=== PATIENT | male | born 1965 | race Caucasian/White ===

== ENCOUNTER → 2017-08-16 | Emergency (ER) | payer OTHER ==
[~2017-08-16] VITALS: Ht 185.4 cm; Wt 122.5 kg
[~2017-08-16] MED LIST: DIAZEPAM 2 MG TAB PO ONE; HYDROCODONE/APAP 10MG-325MG TAB PO ONE; KETOROLAC TROMETHAMINE 60 MG/2 ML VIAL IM ONE
== END | disposition left against medical advice (07) ==
LOC: ER 12:43
DX: Z53.21 Procedure and treatment not carried out due to patient leaving prior to being seen by health care provider (principal)

== ENCOUNTER 2018-07-28 15:21 | Inpatient (IN) | payer OTHER ==
[~2018-07-28] VITALS: Ht 185.4 cm; Wt 127.0 kg
[2018-07-28 16:35] LABS: BASOPHILS % 0.2 % (0.0-1.0); EOSINOPHILS # (AUTO) 0.1 (0.0-0.4); EOSINOPHILS % 1.2 % (0.0-6.0); HEMATOCRIT 49.6 % (38.2-49.6); HEMOGLOBIN 15.8 g/dL (14.0-18.0); LYMPHOCYTES # (AUTO) 2.4 (1.0-3.2); LYMPHOCYTES % 29.9 % (18.0-39.1); MEAN CORPUSCULAR HEMOGLOBIN 30.7 pg (28-32); MEAN CORPUSCULAR HGB CONC 31.9 g/dL (31-35); MEAN CORPUSCULAR VOLUME 96.5 fL (81-99); MONOCYTES # (AUTO) 0.7 (0.2-0.8); MONOCYTES % 8.1 % (4.4-11.3); NEUTROPHILS # (AUTO) 4.9 (2.1-6.9); NEUTROPHILS % 60.2 % (38.7-80.0); PLATELET COUNT 250 x10e3/uL (140-360); RED BLOOD COUNT 5.14 x10e6/uL (4.3-5.7); RED CELL DISTRIBUTION WIDTH 14.7 % (11.7-14.4)
[2018-07-28 16:39] LABS: INR 0.87; PROTHROMBIN TIME 12.6 seconds (11.9-14.5)
[2018-07-28 16:40] LABS: PARTIAL THROMBOPLASTIN TIME 27.9 seconds (23.8-35.5)
[2018-07-28 16:53] LABS: ALANINE AMINOTRANSFERASE 20 IU/L (0-55); ALBUMIN 3.2 g/dL (3.5-5.0); ALKALINE PHOSPHATASE 44 IU/L (40-150); ANION GAP 14.7 mmol/L (8-16); BLOOD UREA NITROGEN 5 mg/dL (7-26); BUN/CREATININE RATIO 6 (6-25); CARBON DIOXIDE 33 mmol/L (22-29); CHLORIDE 96 mmol/L (98-107); CREATINE KINASE 45 IU/L (30-200); CREATININE, SERUM 0.88 mg/dL (0.72-1.25); EST GLOMERULAR FILTRATION RATE > 60 ML/MIN (60-); GLUCOSE 113 mg/dL (74-118); POTASSIUM 3.7 mmol/L (3.5-5.1); SODIUM 140 mmol/L (136-145)
--- NOTE | 2018-07-28 18:13 | Diagnostic Imaging Report ---
EXAMINATION: CHEST 2 VIEWS INDICATION: ^SOB COMPARISON: None FINDINGS: PA and lateral views TUBES and LINES: None. LUNGS: Lungs are not well inflated. There are bibasilar atelectasis. There is no evidence of pneumonia or pulmonary edema. PLEURA: No pleural effusion or pneumothorax. HEART AND MEDIASTINUM: The cardiomediastinal silhouette is unremarkable. BONES AND SOFT TISSUES: Low anterior cervical fusion plate. No acute osseous lesion. Soft tissues are unremarkable. UPPER ABDOMEN: No free air under the diaphragm. IMPRESSION: Hypoinflated lungs with atelectasis. Signed by: Dr. Estiven Sweeney M.D. on 07/28/2018 6:10 PM
[2018-07-28] MEDS ORDERED: ALPRAZOLAM1 MG PO (18:57)
[2018-07-28] MEDS ORDERED: TRAZODONE HCL100 MG PO (18:57)
--- NOTE | 2018-07-28 19:11 | NUR ---
REPORT GIVEN TO ELOY HOOKS DRY MILL OPERATOR NURSE.
[2018-07-28] MEDS ORDERED: ASPIRIN 81 MG CHEW TAB PO ONE (19:30)
[2018-07-28] MEDS ORDERED: MORPHINE SULFATE 2 MG/ML SYR IV PRN (19:30)
--- NOTE | 2018-07-28 19:56 | NUR ---
REPORT CALLED TO ELOY FARIAS FLOOR NURSE. PT GOING TO RM 109 ON TELE. PT AWARE OF ROOM #.
[2018-07-28 20:22] VITALS: BP 111/72
[2018-07-28] MEDS: MORPHINE SULFATE INJ 4 MG/ML INJ IV PRN (20:40)
[2018-07-28] MEDS: SODIUM CHLORIDE 0.9% 1000ML 1,000 ML IV SCH (23:06)
[2018-07-29] VITALS (22 sets, daily range): BP systolic 111–157; BP diastolic 71–103
[2018-07-29] MEDS: MORPHINE SULFATE INJ 4 MG/ML INJ IV PRN ×3 (00:32→08:49)
--- NOTE | 2018-07-29 00:57 | NUR ---
Blood drawn and sent to lab.
[2018-07-29 01:36] LABS: CREATINE KINASE MB 1.3 ng/mL (0-5.0)
[2018-07-29 06:01] LABS: BASOPHILS % 0.3 % (0.0-1.0); EOSINOPHILS # (AUTO) 0.1 (0.0-0.4); EOSINOPHILS % 1.2 % (0.0-6.0); HEMATOCRIT 45.2 % (38.2-49.6); HEMOGLOBIN 14.2 g/dL (14.0-18.0); LYMPHOCYTES # (AUTO) 2.2 (1.0-3.2); LYMPHOCYTES % 28.9 % (18.0-39.1); MEAN CORPUSCULAR HEMOGLOBIN 30.7 pg (28-32); MEAN CORPUSCULAR HGB CONC 31.4 g/dL (31-35); MEAN CORPUSCULAR VOLUME 97.8 fL (81-99); MONOCYTES # (AUTO) 0.7 (0.2-0.8); MONOCYTES % 9.3 % (4.4-11.3); NEUTROPHILS # (AUTO) 4.7 (2.1-6.9); NEUTROPHILS % 59.9 % (38.7-80.0); PLATELET COUNT 261 x10e3/uL (140-360); RED BLOOD COUNT 4.62 x10e6/uL (4.3-5.7); RED CELL DISTRIBUTION WIDTH 14.7 % (11.7-14.4)
--- NOTE | 2018-07-29 06:21 | Diagnostic Imaging Report ---
EXAM: CHEST SINGLE (PORTABLE), AP 1 view INDICATION: Chest pain, shortness of breath COMPARISON: PA and lateral view of the chest July 28, 2018 FINDINGS: LINES/TUBES: None LUNGS: No consolidations or edema. Perihilar and bibasilar atelectasis. PLEURA: No effusions or pneumothorax. Stable elevation of the right hemidiaphragm. HEART AND MEDIASTINUM: Normal size and contour. BONES AND SOFT TISSUES: No acute findings. Lower cervical spine surgical hardware. IMPRESSION: No interval change. Signed by: Dr. Neyda Garrison M.D. on 07/29/2018 6:18 AM
[2018-07-29 06:35] LABS: ANION GAP 10.3 mmol/L (8-16); BLOOD UREA NITROGEN 7 mg/dL (7-26); BUN/CREATININE RATIO 9 (6-25); CALCIUM 8.6 mg/dL (8.4-10.2); CARBON DIOXIDE 35 mmol/L (22-29); CHLORIDE 98 mmol/L (98-107); CREATININE, SERUM 0.81 mg/dL (0.72-1.25); EST GLOMERULAR FILTRATION RATE > 60 ML/MIN (60-); GLUCOSE 97 mg/dL (74-118); MAGNESIUM 1.8 MG/DL (1.3-2.1); POTASSIUM 4.3 mmol/L (3.5-5.1); SODIUM 139 mmol/L (136-145)
[2018-07-29] MEDS: ONDANSETRON HCL INJ 2 MG/ML VIAL IV PRN (08:49)
[2018-07-29] MEDS: SODIUM CHLORIDE 0.9% 1000ML 1,000 ML IV SCH ×2 (08:49→11:59)
[2018-07-29 08:52] LABS: CHOL/HDL RATIO 4.9 (3.9-4.7)
--- NOTE | 2018-07-29 09:00 | NUR ---
Patient's [id number]% on 3L NC, patient takes O2 off and desats to 85/86%, reminded and educated to keep O2 NC in place and verbalized understanding
--- NOTE | 2018-07-29 09:04 | NUR ---
Patient alert and responsive, VSS, medicated for pain, OOB to bathroom and ambulated using walker, chorea jerky involuntary movements noted, assisted patient to bathroom, call light within reach
[2018-07-29 09:11] LABS: CREATINE KINASE MB 1.5 ng/mL (0-5.0); THYROID STIMULATING HORMONE 2.002 uIU/mL (0.350-4.940)
[2018-07-29] MEDS ORDERED: ACETAMINOPHEN 325 MG TAB PO PRN (10:15)
[2018-07-29] MEDS: ASPIRIN 325 MG TAB PO SCH (10:30)
[2018-07-29] MEDS: METOPROLOL SUCCINATE 50 MG TAB XL PO SCH (10:30)
--- NOTE | 2018-07-29 10:41 | NUR ---
Patient with episode of vomiting and upon sitting up and will complete orthostatics, James consulted, other orders for consults in place and being called at this time, patient sitting at bedside, signed consent for stress test and in the chart.
--- NOTE | 2018-07-29 10:43 | Consultation ---
DATE OF CONSULTATION: July 29, 2018 REASON FOR CONSULTATION: Chest pain and shortness of breath. CHIEF COMPLAINT: Chest pain, shortness of breath and back pain. HISTORY OF PRESENT ILLNESS: This is a 53-year-old male with apparent history of COPD, PTSD, anxiety, depression, hypertension, chronic back pain, apparently being followed by Kenneth Hayward. Also, "Mel[place] War Syndrome". The patient presents to [facility] ER with apparent complaints of chest pain, shortness of breath, chest tightness, back pain. Cardiology was consulted to evaluate the patient. The patient was seen in the room. Reports chest pain and chest tightness for the past 6 months. Reports came into the hospital because he was tired of the pain. Pain is worse with palpation and deep breathing. The patient's main complaint is back pain that he says he has been evaluated by Dr. Hayward. Had a spinal injection apparently in March 2018 with no relief. Currently, the patient reports chest pain moderate in nature and worse with palpation and deep breathing. Denies any exertional chest pain. However, the patient is not very active. States that he is just chronically weak. PAST MEDICAL HISTORY: Anxiety, depression, PTSD, "[place] War Syndrome", chronic back pain, COPD, hypertension. PAST SURGICAL HISTORY: Ronda, recent epidural pain injection in March 2018, left knee surgery, apparently colon resection. SOCIAL HISTORY: He is a disabled vet. Positive for alcohol use. He says rare. Also, positive for tobacco use about half a pack a day. Denies any other drug use. FAMILY HISTORY: Mother apparently is , unknown age or cause. Father apparently is at age of 67. Unsure of reason of . HOME MEDICATIONS: Patient reports Xanax and trazodone. REVIEW OF SYSTEMS GENERAL: Denies any weight changes. Positive for fatigue, weakness. Denies any fever, chills, night sweats, skin rashes. SKIN: No rashes. No sores. HEENT: Positive for headache and occasional dizziness. Denies any vision changes, blurred vision, double vision. Positive for earaches. Denies any vertigo. Denies any epistaxis, any runny nose, stuffiness. Denies any sore throat. Positive for neck pain. CARDIAC: Positive for chest pain as described. Positive for dyspnea on exertion. Denies any orthopnea or any PND. No lower extremity edema. RESPIRATORY: Positive for shortness of breath. Denies any wheezing, cough, any hemoptysis. GI: Good appetite. Denies any nausea, vomiting, diarrhea, constipation, hematemesis, any melena. URINARY: Denies any frequency, urgency or any dysuria. VASCULAR: Denies any lower extremity edema, claudication. MUSCULOSKELETAL: Reports muscle weakness throughout. Uses a cane for ambulation. Positive for back pain. NEUROLOGIC: Positive for weakness. Denies any fainting. Denies any seizures. HEMATOLOGY: Denies anemia or easy bruising. ENDOCRINE: Denies any heat or cold intolerance, polyuria, polydipsia, polyphagia. PSYCHIATRIC: Positive for anxiety, depression. PHYSICAL EXAMINATION VITALS: Height 73 inches, weight 280 pounds, BMI 36. Vital signs currently are temperature 97.4, pulse 100, respiratory rate 18, blood pressure 131/71, pulse ox 96 on 2 L nasal cannula. GENERAL: In moderate distress given back pain. SKIN: No rashes or bruises noted. HEENT: Normocephalic. Pupils are equal and reactive. Extraocular movements intact. Trachea midline. No thyromegaly. No JVD. No carotid bruits. HEART: Regular rate and rhythm. No murmurs or clicks. LUNGS: Bilateral breath sounds clear to auscultation. Diminished throughout. ABDOMEN: Soft, nontender and nondistended. No organomegaly noted. MUSCULOSKELETAL: Good muscle strength throughout. VASCULAR: Plus 2 bilateral radial pulses and 1 DP and PT pulses bilaterally. NEUROLOGIC: Cranial nerves II-XII seem intact. LABS: White count is 7.7, hemoglobin 14, hematocrit 45, and platelets 261,000. Sodium 139, potassium 4.3, BUN 7, creatinine 0.8. Troponins are 0.02, 0.02, 0.02. BNP 52. TSH 2. LDL 76, HDL 27. Chest x-ray showing hypoinflated lungs. EKG showing sinus rhythm with nonspecific S/T changes. ASSESSMENT AND PLAN 1. Chest pain. 2. Chronic back pain. 3. Chronic obstructive pulmonary disease. 4. Posttraumatic stress disorder/anxiety/depression. 5. Hypertension. PLAN: The patient presents with multiple complaints of back pain, shortness of breath, chest pain. Enzymes negative. However, the patient's chest pain does not sound cardiac in nature. However, the patient is very concerned of his heart status, and is demanding further evaluation. Will go ahead and do an echo to evaluate heart structure and function. We will do a stress test. It will be a Lexiscan since the patient cannot walk. Will continue to monitor the patient and adjust cardiac therapy as course dictates. Thank you very much for this consult. SEEN AND EVALUATED AGREE WITH NOTE DICTATED BY SUZI JAMES NP Job#: [id number] RI RUBÉN
[2018-07-29] MEDS ORDERED: REGADENOSON 0.4 MG/5 ML SYR IV ONE (11:02)
--- NOTE | 2018-07-29 11:19 | NUR ---
Patient picked up at this time for stress test.
--- NOTE | 2018-07-29 11:56 | NUR ---
Patient returned from stress test and VS- stable but some noted tachycardia and an episode of vomiting, medicated for nausea and will complete orthostatic with patient stable per orders, call light within reach, will, monitor
--- NOTE | 2018-07-29 12:54 | NUR ---
BAGGAGE AGENT WANTED A NURSE TO ASSESS THE PATIENT PRIOR TO TAKING HIM FOR HIS STRESS TEST BECAUSE HE STATED "THE PATIENT FACE LOOKED PURPLE". UPON ASSESSMENT THE PATIENT'S FACE WAS DUSKY, THE OXYGEN WAS OFF HIS NOSE. HE WAS PLACED BACK ON HIS OXYGEN, SATURATION WAS 55% ON 2L. THE OXYGEN WAS INCREASED TO 4L/NC, HEAD OF BED ELEVATED AND THE SATURATION STAYS AT 77%. LUNGS SOUNDS CLEAR, RESPIRATORY THERAPIST WAS CALLED. THE OXYGEN WAS INCREASED AGAIN TO 5L/NC, PATIENT TOLD TO TAKE SEVERAL DEEP BREATHS IN AND OUT AND THE SATURATION INCREASE TO 92%. DR CARRASQUILLO CAME IN TO SEE THE PATIENT, HE STATED TO DECREASE THE OXYGEN TO 2L AND OBTAIN STAT ABG. RESPIRATORY THERAPIST CAME IN, SHE CHECKED HIS SATURATION AND IT READ 87% ON 2L/NC. THE PRIMARY NURSE MARQUISE CAME TO SEE THE PATIENT, STATUS UPDATE WAS GIVEN TO HIM.
--- NOTE | 2018-07-29 13:00 | History and Physical ---
A 53-year-old male with a past medical history positive for PTSD, posttraumatic stress disorder, history bipolar disorder, history of hypertension, history of chronic back pain, came complaining of chest pain originally to the emergency room, but now he complained also that he has been vomiting and feeling weak, falling, getting confused at times. REVIEW OF SYSTEMS CARDIOVASCULAR: No chest pain or palpitation. RESPIRATORY: No shortness of breath. No cough. GASTROINTESTINAL: He complains of vomiting. No abdominal pain. No diarrhea. No constipation. GENITOURINARY: No frequency. No dysuria. ALLERGIES: HE IS ALLERGIC TO PROCHLORPERAZINE. SOCIAL HISTORY: He does not smoke. He denies drinking. PAST MEDICAL HISTORY: PTSD and chronic back pain. PHYSICAL EXAMINATION VITALS: Blood pressure 131/71, temperature is 97.4, heart rate 100 per minute, respiratory rate 18 per minute, oxygen saturation 91%. HEART: Shows regular rhythm. Normal S1 and S2 sounds. LUNGS: Clear bilaterally. ABDOMEN: Soft and nondistended. No visceromegaly. EXTREMITIES: Show no evidence of cyanosis or trauma. On the BMP, sodium 139, potassium 4.3, chloride 98, CO2 35, BUN 7, creatinine 0.81, glucose 97. On the CBC, white blood count 7.76, hemoglobin 14.2, hematocrit 45.2, and platelet count 261,000. PT 12.6, INR 0.87, PTT 27.9. AST 14, ALT 20, total bilirubin 0.7, alkaline phosphatase 44. Three sets of cardiac enzymes completely negative. EKG showed normal sinus rhythm with right axis deviation. No evidence of any S/T segment elevation or depression. Echocardiogram pretty much unremarkable with an ejection fraction of 55%. No evidence of pericardial effusion. No evidence of valvular abnormality. Trace MR and trace tricuspid regurgitation. FINAL IMPRESSION 1. Chest pain which is very atypical. 2. Vomiting. 3. Back pain which is chronic. 4. Anxiety. 5. Posttraumatic stress disorder. 6. Difficulty walking. 7. Confusion times. PLAN OF TREATMENT: We are going to continue normal saline at 125 mL an hour. Zofran 4 mg IV q.4 h. as needed. Alprazolam 1 mg 3 times a day as needed for anxiety. Tylenol 325 mg IV q.6 h. as needed for pain. Morphine 4 mg IV q.4 h. as needed. We are going to consult Dr. Deleon from cardiology. We are going to get a psych consult with Dr. Agustin because of posttraumatic stress disorder. We are going to get physical and occupational therapy. Orthostatic blood pressure. Consult Dr. Jeter for physical therapy also. We are going to consult Dr. Mat Eugene for gastroenterology because of the vomiting. We are going to do a CT of the abdomen also and a chest CT because of positive . Job#: [id number] RI
--- NOTE | 2018-07-29 13:13 | NUR ---
Patient desatted to 80RA as he took off Oxygen, re-applied O2 and at 85% on 3L NC, unable to get it up, orders in place for ABGs and to cancel stress test for today, will place on non-rebreather mask as RT in room with patient.
--- NOTE | 2018-07-29 13:26 | NUR ---
Lavonne obtained and call to Dr. Cartwright to report at this time
--- NOTE | 2018-07-29 13:34 | Diagnostic Imaging Report ---
PROCEDURE:X-RAY ABDOMEN - KUB COMPARISON:None. INDICATIONS:VOMITING FINDINGS: There are no dilated loops of bowel to suggest obstruction. There are clips in the right upper quadrant of the abdomen. There are no masses or abnormal calcifications. There is no evidence of free air. No acute osseous abnormalities are present. CONCLUSION: No acute abdominal abnormality. Felix Boo D.O. Dictated by: Felix Boo D.O. on 07/29/2018 at 13:46 Electronically approved by: Felix Boo D.O. on 07/29/2018 at 13:46
[2018-07-29 13:36] LABS: ABG PCO2 78 mmHg (41-51); ABG PH 7.28 (7.31-7.41)
[2018-07-29 13:37] LABS: ABG HCO3 37 mmol/L (23-28); ABG PO2 46 mmHg (80-105)
--- NOTE | 2018-07-29 13:52 | NUR ---
Call back from Dr. Cartwright and orders in place for pain management and to transfer to IMCU, patient on Bipap at this time, [id number]%, will monitor.
--- NOTE | 2018-07-29 14:41 | NUR ---
Rounds by Dr. Rodriguez and saw patient, orders in place at this time
--- NOTE | 2018-07-29 14:42 | NUR ---
Call back from Dr. Newberry for consult and informed of patient and orders for Bipap as per settings.
--- NOTE | 2018-07-29 14:55 | NUR ---
Report given to Nurse at the IMCU and patient transferred to room 187
--- NOTE | 2018-07-29 14:55 | Consultation ---
DATE OF CONSULTATION: PSYCHIATRIC INITIAL EVALUATION REASON FOR CONSULTATION: Treatment and evaluation of the patient's mood and anxiety. HISTORY OF PRESENT ILLNESS: Patient is a 53-year-old male who was admitted to [facility] because of chest pain. Psychiatric consult is called to evaluate the patient's mood and anxiety during his inpatient stay. Upon evaluation today, the patient is found to be lying on his bed on BiPAP. He is somewhat drowsy, but easily arousable. He stated that he has been feeling depressed and anxious because he is going through financial challenges, and is about to lose his house. He sometimes feels hopeless and helpless. He claims that he is not able to sleep and eat very well. He is having intermittent auditory and sometimes visual hallucinations. He denies any suicidal ideation at this time. He wants his medications to be adjusted for his mood and anxiety. PAST PSYCHIATRIC HISTORY: The patient stated that he has been treated for PTSD and bipolar disorder in the past. He has never attempted suicide. He claims that he drinks alcohol socially. He denies abusing any recreational drugs. FAMILY HISTORY: The patient denies any family history of psychiatric illness. SOCIAL HISTORY: The patient states that he lives with his family. CURRENT LABS: WBC 7.76, hemoglobin 14.2, hematocrit 45.2, and platelets 261,000. Sodium 139, potassium 4.3, chloride 98, carbon dioxide 35, BUN 7, creatinine 0.81. CURRENT MEDICATIONS 1. Xanax 1 mg p.o. t.i.d. p.r.n. for anxiety. 2. Aspirin. 3. P.r.n. morphine. 4. Trazodone 100 mg p.o. t.i.d. MENTAL STATUS EXAMINATION GENERAL: The patient is a middle-aged male who is currently lying on his bed. He is drowsy, but arousable. He is oriented to situation. His mood is anxious and depressed. Blunted affect. He denies any suicidal or homicidal ideation at present. He denies any abnormal perceptions at present. No delusions are elicited. Thought process is goal directed. His insight and judgment are fair. DIAGNOSIS: [place] 1: Bipolar disorder, most recent episode depressed, moderate/history of posttraumatic stress disorder. PLAN OF CARE 1. Reduce trazodone to only at night. 2. Continue p.r.n. Xanax. 3. Add Effexor XR 75 mg p.o. daily. 4. Supportive therapy during his inpatient stay. Job#: [id number] RI
[2018-07-29] MEDS ORDERED: NON-FORMULARY MEDICATION (Trazodone Hcl 100 MG) PO SCH (15:00)
[2018-07-29] MEDS ORDERED: TRAZODONE HCL 50 MG TAB PO SCH ×2 (15:00→21:00)
[2018-07-29] MEDS ORDERED: ALBUTEROL/IPRATROPIUM 3 ML NEB NEB PRN (15:00)
--- NOTE | 2018-07-29 15:09 | History and Physical ---
ADDENDUM TO HISTORY AND PHYSICAL: He had an episode of hypoxemia with hypercapnia. Morphine was discontinued. He was started on BiPAP. Blood gas was done that showed a pH of 7.28, pCO2 78, pO2 46. Sodium bicarbonate 37. Oxygen saturation 93%. He is doing a little better right now. Morphine has been discontinued. He was started on Toradol and Ultracet for pain instead. Dr. Newberry of pulmonology was consulted on the case. Chest x-ray was done also. The chest x-ray showed it was pretty much normal. He does have a history of smoking, so he might have COPD exacerbation. I am going to start him on albuterol and Atrovent q.4 h. as needed for shortness of breath, Solu-Medrol 60 mg IV twice a day plus oxygen also as needed. Dr. Newberry has been consulted from the pulmonary point of view. Also because of that, Dr. Deleon is seeing him from the cardiology point of view. He was going to do a cardiac cath, but he had to postpone it. We did an abdominal x-ray which came back negative. Patient is feeling a lot better right now. Job#: [id number]
--- NOTE | 2018-07-29 15:15 | NUR ---
Patient VSS on Bipap; states he wishes for to be called. Called who states she is en route.
[2018-07-29] MEDS: ALPRAZOLAM 1 MG TAB PO PRN (16:01)
--- NOTE | 2018-07-29 16:56 | NUR ---
Patient resting, eyes closed. to bedside. No acute distress.
[2018-07-29] MEDS: METHYLPREDNISOLONE SOD SUCC 40 MG/ML VIAL IV SCH (21:18)
[2018-07-29] MEDS: TRAMADOL/APAP 37.5MG-325MG TAB PO PRN (23:42)
[2018-07-30] VITALS (9 sets, daily range): BP systolic 104–153; BP diastolic 69–98
--- NOTE | 2018-07-30 01:22 | Consultation ---
DATE OF CONSULTATION: July 29, 2018 PULMONARY MEDICINE CONSULT REASON FOR REFERRAL: Acute respiratory failure. HISTORY: Mr. Barrera is a pleasant 53-year-old gentleman with acute respiratory failure. The patient was admitted to [facility] on July 28, 2018. Patient had chest tightness. He had complained that he felt vomiting/nausea and felt weak. Confusion is also cited. Patient was admitted and evaluated at multiple levels. Patient later had episode of hypoxemia with hypercapnia. He was on morphine that was discontinued. He was started on BiPAP. Subsequent blood gas showed 7.28/78/46/37. Patient's chest x-ray was performed that showed right diaphragmatic elevation but was otherwise clear. BNP was 52. I am consulted. PAST MEDICAL HISTORY: PTSD, chronic back pain. Denies asthma, denies allergies. MEDICATIONS: Medication list reviewed per electronic record, include Solu-Medrol, nicotine patch, metoprolol, alprazolam 1 mg t.i.d. Other medicines, bronchodilators. ALLERGIES: PROCHLORPERAZINE. FAMILY HISTORY: Noncontributory to his condition. SOCIAL HISTORY: Limited history as patient on respiratory assist device. When I asked if he smokes, he said yes and signals 1 pack per day. No drinking, no drugs were reported by him. REVIEW OF SYSTEMS: Cannot get reliably as he is on respiratory support device. OBJECTIVE VITALS: Currently afebrile. Vital signs noted per the electronic record. Currently on BiPAP, comfortable, lying down, communicating by signage. HEENT: Normocephalic, atraumatic. NECK: Supple. Throat midline. LUNGS: Bilateral air entry. Limited effort; therefore, difficult on auscultation. No jolie wheezes, no jolie rhonchi. CARDIOVASCULAR: S1, S2. No murmurs, rubs, or gallops. ABDOMEN: Soft, nontender. EXTREMITIES: No clubbing, no cyanosis. There is 2+ edema to the legs. INTEGUMENT: No rash, no purpura. LABS: 4.3 potassium, 7 BUN, 0.8 creatinine, 8 white count, 45 hematocrit, 261,000 platelets. IMPRESSIONS AND PLAN 1. Acute respiratory failure, on BiPAP salvage. 2. Elevated right hemidiaphragm, contributing to respiratory insufficiency. 3. Chronic smoker, suspect chronic obstructive pulmonary disease. 4. History of anxiety, depression, and posttraumatic stress disorder. 5. Chronic back pain, on pain medicines. 6. Obesity, cannot rule out obesity hyperventilation or sleep apnea components. Continue monitoring in IMCU intermediate care. BiPAP salvage to continue. Will give him 1 trial dose of diuretic. Patient with limitation of opiates. Steroids. Bronchodilators. Will follow along very closely. Initial echocardiogram done, 55% LVEF. Thank you very much, Dr. Cartwright, for allowing me the chance to participate in the care of Mr. Barrera. Do not hesitate to contact me if I can help in any way. Job#: [id number] [id number]
[2018-07-30] MEDS: TRAMADOL HCL 50 MG TAB PO PRN ×2 (04:45→11:02)
[2018-07-30 05:32] LABS: BASOPHILS % 0.1 % (0.0-1.0); HEMATOCRIT 48.5 % (38.2-49.6); LYMPHOCYTES # (AUTO) 0.6 (1.0-3.2); LYMPHOCYTES % 5.8 % (18.0-39.1); MEAN CORPUSCULAR HEMOGLOBIN 30.5 pg (28-32); MEAN CORPUSCULAR HGB CONC 30.9 g/dL (31-35); MEAN CORPUSCULAR VOLUME 98.6 fL (81-99); MONOCYTES # (AUTO) 0.1 (0.2-0.8); NEUTROPHILS # (AUTO) 8.9 (2.1-6.9); NEUTROPHILS % 92.6 % (38.7-80.0); PLATELET COUNT 269 x10e3/uL (140-360); RED BLOOD COUNT 4.92 x10e6/uL (4.3-5.7); RED CELL DISTRIBUTION WIDTH 13.7 % (11.7-14.4)
--- NOTE | 2018-07-30 05:36 | Diagnostic Imaging Report ---
EXAM: CHEST SINGLE (PORTABLE), AP 1 view INDICATION: Shortness of breath COMPARISON: AP view of the chest July 29, 2018 FINDINGS: LINES/TUBES: None LUNGS: Stable bilateral atelectasis and vascular congestion. PLEURA: No effusions or pneumothorax. Stable elevation of the right hemidiaphragm. HEART AND MEDIASTINUM: Normal size and contour. BONES AND SOFT TISSUES: No acute findings. Lower cervical spine surgical hardware. IMPRESSION: No interval change. Signed by: Dr. Neyda Garrison M.D. on 07/30/2018 5:32 AM
[2018-07-30 05:53] LABS: ANION GAP 11.2 mmol/L (8-16); BLOOD UREA NITROGEN 8 mg/dL (7-26); BUN/CREATININE RATIO 10 (6-25); CALCIUM 8.5 mg/dL (8.4-10.2); CARBON DIOXIDE 36 mmol/L (22-29); CHLORIDE 96 mmol/L (98-107); CREATININE, SERUM 0.83 mg/dL (0.72-1.25); EST GLOMERULAR FILTRATION RATE > 60 ML/MIN (60-); GLUCOSE 155 mg/dL (74-118); MAGNESIUM 1.8 MG/DL (1.3-2.1); POTASSIUM 5.2 mmol/L (3.5-5.1); SODIUM 138 mmol/L (136-145)
[2018-07-30] MEDS: VENLAFAXINE HCL 75 MG CAPCR PO SCH (07:39)
[2018-07-30] MEDS: METHYLPREDNISOLONE SOD SUCC 40 MG/ML VIAL IV SCH ×2 (07:39→21:17)
[2018-07-30] MEDS: ASPIRIN 325 MG TAB PO SCH (07:39)
[2018-07-30] MEDS: TRAMADOL/APAP 37.5MG-325MG TAB PO PRN ×2 (07:40→18:33)
[2018-07-30] MEDS: NICOTINE 21 MG/EA PATCH TOP SCH (07:40)
[2018-07-30] MEDS: METOPROLOL SUCCINATE 50 MG TAB XL PO SCH (07:40)
[2018-07-30] MEDS: ALPRAZOLAM 1 MG TAB PO PRN ×2 (07:40→13:01)
[2018-07-30] MEDS ORDERED: FUROSEMIDE INJ 10 MG/ML 2 ML VIAL IV SCH (09:00)
[2018-07-30] MEDS ORDERED: SOD POLYSTYRENE SULFONATE SUSP 15 GM/60 ML BTL PR ONE (15:00)
--- NOTE | 2018-07-30 15:46 | Consultation ---
DATE OF CONSULTATION: July 30, 2018 REHAB CONSULTATION REFERRING PHYSICIAN: Dr. Hema Cartwright. I would like to thank Dr. Cartwright for asking me to see Mr. Barrera in consultation. REASON FOR CONSULTATION 1. Chronic low back pain. 2. Respiratory insufficiency. 3. Posttraumatic stress disorder. 4. COPD. HISTORY: A 53-year-old male with a history of COPD, posttraumatic stress disorder, anxiety disorder, depression, hypertension, chronic back pain, who is seen by Dr. Hayward for neurologic consultation. Has already undergone cervical fusion and was planning to undergo lumbar fusion but over the recent past has been having problems with breathing, having atypical chest pains. Had been seen over at [facility] for breathing issues, and according to the and patient they still could not figure out exactly what was causing him to have problems. Patient right now is having difficulty with gait and mobility secondary to his back and was scheduled to get lumbar fusion. I am being asked to evaluate for rehab needs. PAST MEDICAL HISTORY: Includes anxiety, depression, posttraumatic stress disorder, [place] War syndrome, chronic back pain, COPD, hypertension, osteoarthritis. SURGERIES: Cholecystectomy. He had an epidural steroid injection which did not seem to help any. Left knee replacement. Colon resection. HABITS: He smokes half a pack of cigarettes a day. Nondrinker. No drugs. SOCIAL HISTORY: Lives with and 3 children in a 2-story home. Bedroom is upstairs. Was walking around with a cane. FAMILY HISTORY: Mother is , unsure what she of. Father , again unsure what he of. CONSTITUTIONAL REVIEW OF SYSTEMS GENERAL: Easily fatigues. EYES: Denies. EARS: Denies. NERVES: He has anxiety. He also has what sounds like ulnar nerve issues to right hand. CARDIAC: Some atypical chest pains. LUNGS: COPD. GI: Denies. : Denies. SKIN: Denies. HEMATOLOGIC: Denies. LABS: White cell count of 9.5, hemoglobin 15, hematocrit 48.5, platelets of 269. Sodium 138, potassium 5.2, BUN of 8, creatinine 0.83. He had a KUB which showed no acute abdominal abnormality, and he had a chest x-ray which showed no interval changes. PHYSICAL EXAMINATION GENERAL: The patient is awake and alert. He is sleepy at times, but then he is more awake at times. He comes in and out. A little bit more confused than normal according to his . EYES: Gaze is conjugate. ORAL: Tongue essentially midline. NECK: No JVD. HEART: Regular. LUNGS: Fair air entry. ABDOMEN: Nondistended. He is obese. EXTREMITIES: Had limited hip flexion secondary to referred pain to his back. He could straighten out his knees and move his ankles, and the upper extremities had functional range of motion. MANUAL MUSCLE TESTIN-/5 strength in the upper extremities bilaterally. In the lower extremities hip flexion/extension was 3+/5 strength with an achievable range of motion. Knee flexion/extension was 4/5 strength bilaterally. Ankle dorsiflexion/plantarflexion was 4-/5 bilaterally. Rehab-de dios, patient had physical therapy yesterday which showed patient's O2 sats were desaturating and they could barely see them and do much. IMPRESSION 1. Low back pain. He is scheduled for a lumbar fusion. 2. Oxygen desaturation, chronic obstructive pulmonary disease, pulmonary insufficiency. Workup is in progress. 3. Patient has atypical chest pain at times. 4. Obesity. 5. Posttraumatic stress disorder, [place] War syndrome. 6. Chronic pain syndrome. PLAN: Therapies have been initiated to work on mobility and transfers. At this point inpatient rehab would not go very well for him. He is still too weak, too limited. Discussed with at length working on diagnosis and treatment for his pulmonary issues. Will be going for lumbar fusion in the future once he is medically stable. Will follow along with you. PRECAUTIONS: Falls. Thank you once again for allowing me to participate in the care of this unfortunate patient. Job#: [id number]
--- NOTE | 2018-07-30 16:04 | Progress Note ---
DATE: INTERNAL MEDICINE PROGRESS NOTE Patient is feeling better today. He is on oxygen. He is complaining of twitching of his arms and legs. He is complaining of swelling of the legs. He is complaining of severe right hip pain also. PHYSICAL EXAMINATION VITALS: Blood pressure 112/69, temperature 97.6, heart rate 70 per minute, respiratory rate 20 per minute, oxygen saturation 95%. HEART: Regular rhythm. Normal S1 and S2 sounds. LUNGS: Showed decreased air sounds bilaterally. ABDOMEN: Soft. EXTREMITIES: Show 2+ bilateral pedal edema. FINAL IMPRESSION 1. Hypoxemic respiratory failure. 2. He had before chronic obstructive pulmonary disease exacerbation. 3. Chronic back pain. 4. Right hip pain. 5. Atypical chest pain. 6. Posttraumatic stress disorder. 7. Hypertension. 8. Chronic pain syndrome. 9. Hyperkalemia. PLAN OF TREATMENT: Continue oxygen. Continue albuterol and Atrovent q.4 h. Continue Zofran 4 mg IV q.4 h. as needed. Alprazolam 1 mg 3 times a day as needed for anxiety. Toradol 10 mg IV q.4 h. as needed. Effexor 75 mg daily. Tylenol 325 mg q.6 h. Tramadol 50 mg q.4 h. as needed. Solu-Medrol 40 mg IV twice a day. Metoprolol 50 mg daily. Ultracet 1 tablet q.6 h. as needed. Aspirin 325 mg daily. Trazodone 100 mg at bedtime. We are going to increase furosemide to 40 mg IV daily. We are going to give Kayexalate. On the blood work, we have a BMP with sodium 138, potassium 5.2, chloride 96, CO2 36, BUN 8, creatinine 0.83, glucose 155. On the CBC, white blood count 9.59, hemoglobin 15, hematocrit 48.5, and platelet count 269,000. PT 12.6, INR 0.87, PTT 27.9. AST 14, ALT 22, total bilirubin 0.7, alkaline phosphatase 144. Chest x-ray showed no evidence of any infiltrates or effusions. So, we going to continue current medication treatment. We are going to order a chest CT and a venous Doppler of both lower extremities to rule out pulmonary embolism and DVT in both lower extremities. We are going to discontinue the fluids. Dr. Newberry was consulted from the pulmonary point of view. Dr. Martínez from physical therapy point of view. Dr. Deleon because of chest pain also has been consulted. Dr. Agustin because of the PTSD and all the anxiety that the patient has. Job#: [id number] RI
[2018-07-30] MEDS: KETOROLAC TROMETHAMINE 30 MG/ML VIAL IV PRN ×2 (16:30→22:32)
[2018-07-30] MEDS: QUETIAPINE FUMARATE 25 MG TAB PO PRN (17:00)
--- NOTE | 2018-07-30 18:48 | Diagnostic Imaging Report ---
CT hip Without Contrast, With Multiplanar Reconstructions. CPT CODE: 60350,36532. INDICATIONS: Hip pain with popping noise. TECHNIQUE: Contiguous 2.5 mm thickness axial images were obtained in helical fashion through the right hip. From these, coronal and sagittal reconstructions were generated. Dose reduction techniques used: Automated exposure control, adjustment of the mAs and/or kVp according to patient size, standardized low-dose protocol, and/or iterative reconstruction technique. RADIATION DOSE: Total DLP: 288.95 mGy*cm Estimated effective dose: (DLP x 0.015 x size factor) mSv CTDIvol has been reviewed. It is below the limits set by the Radiation Protocol Committee (RPC). COMPARISON: Abdomen x-ray 07/29/2018. No hip x-rays available for comparison. Findings: Bowel: Visualized bowel is normal in diameter with normal wall thickness. Lymph nodes: No lymphadenopathy. Bladder: Visualized portions are unremarkable. Peritoneum/retroperitoneum: No free fluid or fluid collection. Bones: Sclerosis of the right SI joint. No osteophyte formation. Sacroiliac joint is widely patent. No periosteal new bone formation. No evidence of fracture or dislocation of the hip. There are very early degenerative changes of the hip. Visualized pubic rami are intact. No lytic lesions. A subcentimeter bone island is in the right femoral head. Soft tissues: No intramuscular hematoma or mass. Subcutaneous tissues are unremarkable. IMPRESSION: Mild degenerative changes of the right SI joint and right hip. No evidence of acute fracture or dislocation. If there is persistent pain or clinical concern for ligamentous or tendinous abnormality, recommend MRI of the hip on an outpatient basis. Thank you for this referral. Signed by: Dr. Faye Aleman MD on 07/30/2018 6:44 PM
--- NOTE | 2018-07-30 18:56 | Diagnostic Imaging Report ---
CT chest pulmonary embolism protocol CPT code: 21485 INDICATION: Hypoxia TECHNIQUE: Thin collimation axial images obtained through the level of the pulmonary arteries with additional imaging through the chest following the uneventful administration of 100 cc of low osmolar, nonionic intravenous contrast. Images reconstructed into coronal and sagittal MIPs for complete evaluation of the tortuous and overlapping pulmonary vascular structures and to reduce patient radiation dose. RADIATION DOSE: Total DLP: 637.7 mGy*cm Estimated effective dose: (DLP x 0.015 x size factor) mSv CTDIvol has been reviewed. It is below the limits set by the Radiation Protocol Committee (RPC). COMPARISON: Chest x-ray 0424 hours. FINDINGS: Pulmonary artery: A 2 mm eccentric filling defect in the lower lobe branch of the right pulmonary artery, posterior basal segment (series 2, image 61). No filling defects elsewhere. Main pulmonary artery measures 3.1 cm in diameter. Aorta: The thoracic aorta is not aneurysmal. No evidence for dissection. Lymph nodes: No enlarged axillary, supraclavicular, or mediastinal lymph nodes. Left hilar lymph node measures 1.8 x 2.1 cm. Right hilar lymph nodes measure up to 11 mm. Thyroid: Normal in size without mass in the visualized parenchyma.. Mediastinum: The heart is normal in size. There are prominent pericardial fat pads. No pericardial effusion. The esophagus is collapsed. Lungs: Mild upper lobe predominant centrilobular emphysema. Right Lung: There is eventration of the right diaphragm with overlying subsegmental atelectasis of the middle and lower lobes. No interstitial edema. Mild bronchial wall thickening. No discrete mass. Left Lung: Subsegmental atelectasis in the upper lobe. Nonspecific subpleural groundglass attenuation in the lower lobe. No confluent infiltrates. No discrete mass. Mild diffuse bronchial wall thickening. Pleura: No pleural effusion or pleural based mass.. Abdomen: The gallbladder is absent. There is fatty atrophy of the pancreas. No mass or lymphadenopathy in the visualized portion of the upper abdomen. Bones: Mild degenerative changes of the spine. Fusion plate in the lower cervical spine is partially imaged. Visualized portions are intact. Soft tissues: Bilateral gynecomastia.. IMPRESSION: 1. 2 mm nonocclusive filling defect in the lower lobe branch of the right pulmonary artery may represent a chronic embolus or artifact. No evidence of embolus elsewhere. 2. Nonspecific hilar lymph node enlargement. Recommend 6 month follow-up with CT to document interval change. 3. Centrilobular emphysema. Bronchial wall thickening suggestive of bronchitis, either acute or chronic. Bilateral subsegmental atelectasis. 4. 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 Signed by: Dr. Faye Aleman MD on 07/30/2018 6:53 PM
[2018-07-30] MEDS ORDERED: SODIUM CHLORIDE 0.9% 50ML 50 ML ONE (19:40)
[2018-07-30] MEDS ORDERED: IOPAMIDOL 370 MG/ML 200 ML INFUS..BTL INJ ONE (19:40)
--- NOTE | 2018-07-30 19:57 | NUR ---
Results of CT of chest read to Dr. Newberry. No new orders received.
[2018-07-30] MEDS: TRAZODONE HCL 50 MG TAB PO SCH (21:17)
[2018-07-30] MEDS: QUETIAPINE FUMARATE 25 MG TAB PO SCH (21:17)
--- NOTE | 2018-07-30 22:29 | Progress Note ---
DATE: July 30, 2018 PULMONARY MEDICINE PROGRESS NOTE SUBJECTIVE: Mr. Barrera was seen and examined at bedside. He was removed from the BiPAP machine this morning. Currently, he has been weaned down to 3 liters per minute by nasal cannula. He did have a bowel movement. He did eat. The patient with some abdominal distention, but this is not far from his baseline. REVIEW OF SYSTEMS: No headaches, no GI bleed. OBJECTIVE VITAL SIGNS: Afebrile. Vital signs noted per electronic record. GENERALLY: No acute distress, alert and calm. HEENT: Normocephalic and atraumatic. NECK: Supple. Throat is midline. LUNGS: Bilateral air entry with decreased air entry, rare rhonchi, mostly clear. CARDIOVASCULAR: S1 and S2. No murmurs, rubs or gallops. ABDOMINAL: Soft and nontender. EXTREMITIES: No clubbing, no cyanosis, there is 2+ edema. INTEGUMENT: No rash or purpura. LABS: Reviewed per electronic record. Creatinine 0.8. Potassium 5.2. White count 10. IMPRESSION 1. Acute respiratory failure, status post BiPAP salvage. 2. Chronic obstructive pulmonary disease with exacerbation. 3. Chronic smoker. 4. Obesity, possible obesity hypoventilation syndrome. 5. Denies allergies, denies asthma. 6. Additional gastrointestinal syndrome of emesis and nausea, either related to the respiratory condition or unrelated. 7. Mild hyperkalemia. PLAN: Continue him on oxygen by protocol. We will continue steroids for now. We will consider weaning furthermore tomorrow to prednisone if he continues to improve. Continue bronchodilators. The patient requires sleep studies and pulmonary function test over a long-term. We will follow along closely. Job#: [id number] RTY
[2018-07-31] VITALS (8 sets, daily range): BP systolic 99–115; BP diastolic 52–67
[2018-07-31] MEDS: KETOROLAC TROMETHAMINE 30 MG/ML VIAL IV PRN ×3 (05:45→13:59)
[2018-07-31] MEDS: ALPRAZOLAM 1 MG TAB PO PRN ×3 (06:40→18:47)
[2018-07-31 06:41] LABS: BASOPHILS % 0.1 % (0.0-1.0); EOSINOPHILS % 0.1 % (0.0-6.0); HEMATOCRIT 47.8 % (38.2-49.6); HEMOGLOBIN 14.8 g/dL (14.0-18.0); LYMPHOCYTES # (AUTO) 0.8 (1.0-3.2); LYMPHOCYTES % 8.2 % (18.0-39.1); MEAN CORPUSCULAR HEMOGLOBIN 30.2 pg (28-32); MEAN CORPUSCULAR VOLUME 97.6 fL (81-99); MONOCYTES # (AUTO) 0.2 (0.2-0.8); MONOCYTES % 2.5 % (4.4-11.3); NEUTROPHILS # (AUTO) 8.4 (2.1-6.9); NEUTROPHILS % 88.7 % (38.7-80.0); PLATELET COUNT 245 x10e3/uL (140-360)
[2018-07-31 07:06] LABS: ANION GAP 13.9 mmol/L (8-16); BLOOD UREA NITROGEN 16 mg/dL (7-26); BUN/CREATININE RATIO 21 (6-25); CALCIUM 8.8 mg/dL (8.4-10.2); CARBON DIOXIDE 35 mmol/L (22-29); CHLORIDE 93 mmol/L (98-107); CREATININE, SERUM 0.76 mg/dL (0.72-1.25); EST GLOMERULAR FILTRATION RATE > 60 ML/MIN (60-); GLUCOSE 141 mg/dL (74-118); POTASSIUM 4.9 mmol/L (3.5-5.1); SODIUM 137 mmol/L (136-145)
[2018-07-31] MEDS: VENLAFAXINE HCL 75 MG CAPCR PO SCH (09:00)
[2018-07-31] MEDS: ASPIRIN 325 MG TAB PO SCH (09:00)
[2018-07-31] MEDS: METHYLPREDNISOLONE SOD SUCC 40 MG/ML VIAL IV SCH (09:00)
[2018-07-31] MEDS: METOPROLOL SUCCINATE 50 MG TAB XL PO SCH (09:00)
[2018-07-31] MEDS: NICOTINE 21 MG/EA PATCH TOP SCH (09:00)
[2018-07-31] MEDS: FUROSEMIDE INJ 10 MG/ML 4 ML VIAL IV SCH (09:00)
[2018-07-31] MEDS: TRAMADOL/APAP 37.5MG-325MG TAB PO PRN ×2 (10:02→18:47)
[2018-07-31] MEDS: QUETIAPINE FUMARATE 25 MG TAB PO PRN ×2 (12:26→18:47)
--- NOTE | 2018-07-31 14:27 | Consultation ---
DATE OF CONSULTATION: July 31, 2018 NEUROLOGY CONSULT NOTE HISTORY OF PRESENT ILLNESS: Mr. Barrera is a 53-year-old man with past medical history significant for bipolar disorder, posttraumatic stress disorder (Mcdonald War syndrome), and myoclonus, admitted to [facility] on July 29, 2018 with shortness of breath, chest pain, and chronic low back pain. During this hospitalization, the patient was noted to have occasional myoclonic jerks of the arms greater than legs. A neurology consultation was requested for evaluation and treatment of myoclonus. Mr. Barrera does endorse occasional myoclonus affecting the arms and legs, arms greater than legs. Occasionally, the myoclonic jerks will affect the whole body. Mr. Barrera reports rarely the myoclonus will have a rhythmic quality to it. The myoclonus occurs daily. It is possible it may occur multiple times per day. Triggers include fatigue and psychosocial stress. The patient first noted myoclonus in 1990. In 2005, he was given a diagnosis of "gulf war syndrome;" the myoclonus was attributed to the aforementioned. Over the past 20 plus years, the patient has undergone multiple evaluations in both and civilian hospitals for myoclonus. He reports undergoing neuroimaging of the brain and spine as well as multiple electroencephalograms. According to the patient, the etiology of the myoclonus is unknown; however, the patient does report undergoing a cervical fusion. When asked why this surgery was performed, the patient reports it was because he was "blacking out." Mr. Barrera is not aware of worsening of his myoclonus with treatment with various psychotropic medications. The patient endorses a possible history of early onset Alzheimer's disease in a maternal relative, or relatives. Otherwise, there is no known family history of Parkinson's disease, Paul's disease, corticobasal degeneration, multiple system atrophy, etc. In the past, Mr. Barrera has been prescribed "a whole host of medications" for treatment of his myoclonus. The patient does not report improvement with any of these medications. At present, the patient takes nothing for treatment of his myoclonus. REVIEW OF SYSTEMS: Shortness of breath, joint pain, memory impairment, chronic low back pain, myoclonus, anxiety, fatigue. Otherwise, a 12-point review of systems is negative. PAST MEDICAL HISTORY: Kidney stones, prior GI and rectal bleeding, bipolar disorder, posttraumatic stress disorder, "Mcdonald War syndrome," diverticulitis, myoclonus. PAST SURGICAL HISTORY: Cervical fusion, partial colectomy, abdominal mesh x4, left knee replacement, left ankle bone spur, cholecystectomy, bilateral knee arthroscopies. PAST HOSPITALIZATIONS: Surgeries/procedures as listed, numerous other hospitalizations. FAMILY MEDICAL HISTORY: The patient's paternal and maternal grandparents are . Their medical histories are unknown. The patient's father is from bone marrow cancer. His mother is from metastatic lung cancer. Mr. Barrera does have a brother and sister, but is estranged from them. He has 3 children, 1 son and 2 daughters, all of whom are alive and healthy. SOCIAL HISTORY: The patient is . He is retired. The patient does report current tobacco use. He has smoked cigarettes for approximately 15 years. The patient does not report current or prior alcohol or recreational drug use. HOME MEDICATIONS 1. Trazodone 100 mg by mouth 3 times daily. 2. Alprazolam 1 mg by mouth 3 times daily as needed for anxiety. HOSPITAL MEDICATIONS: Reviewed. Please see the list of hospital medications available in the electronic medical record. ALLERGIES: PROCHLORPERAZINE. NO KNOWN FOOD ALLERGIES. NO KNOWN ALLERGIES TO LATEX. NO KNOWN ALLERGIES TO IODINE OR OTHER CONTRAST MATERIALS. PHYSICAL EXAMINATION VITAL SIGNS: Height 73 inches, weight 208 pounds, BMI 36.9 kg/m2, blood pressure 99/52 mmHg, pulse 63 beats per minute, respiratory rate 17 breaths per minute, oxygen saturation 97% on 3 liters by nasal cannula. GENERAL: The patient is awake and alert, does not appear distressed. Obese. HEENT: Normocephalic, atraumatic. Pupils are equal, round, and reactive to light. Moist mucous membranes. NECK: Supple. No appreciable thyromegaly. No appreciable carotid bruits. CARDIOVASCULAR: S1, S2, regular rate and rhythm. No murmurs, rubs, or gallops. RESPIRATORY: Clear to auscultation bilaterally. No wheezes, rhonchi, or rales. EXTREMITIES: The skin is warm and dry. No clubbing, cyanosis, or edema. The posterior tibial and dorsalis pedis pulses are 2+ and symmetric. SKIN: No rashes or lesions. NEUROLOGIC: Memory/Attention: The patient is awake and alert, oriented to person, place, time, and situation. Cranial Nerves: Cranial nerve I - Not tested. Cranial nerve II, III, IV, and - Pupils are equal and round, react briskly to light (from 4 mm to 2 mm). Extraocular movements intact. No nystagmus. Cranial nerve V - Sensation to light touch and pinprick is intact in the bilateral V1 through V3 distributions. Strength of the temporalis and masseter muscles is within normal limits. Cranial nerve VII - The face is symmetric as are all facial movements. Strength is within normal limits. Cranial nerve VIII - Hearing is intact to finger rub bilaterally. Cranial nerve IX, X - The soft palate elevates equally and symmetrically. Cranial nerve XI - Normal strength to the bilateral sternocleidomastoid and trapezius muscles. Cranial nerve XII - The tongue protrudes midline and moves symmetrically from side to side. Strength: Bulk is normal. There is effort-dependent weakness in multiple muscles in both arms and both legs, which is only mildly improved with encouragement. Strength is grossly 4/5 in both arms and both legs. Tone is normal. DTRs: Deep tendon reflexes are 2+ and symmetric at the triceps, biceps, and brachioradialis. Deep tendon reflexes are 1+ and symmetric at patellas. Deep tendon reflexes are absent and symmetric at the Achilles. Plantar responses are flexor bilaterally. Sensation: Sensation is intact to light touch and pinprick in both arms and both legs. Cerebellar: [id number] and heel watkins movements are intact without dysmetria or other impairment. Gait: Deferred. Speech: Spontaneous speech is normal without appreciable dysarthria or aphasia. Repetition is intact. Involuntary Movements: The patient is observed to have multiple "myoclonic jerks" throughout the encounter. These movements appear volitional. Pronator drift: None. LABORATORY DATA: The most recent basic metabolic panel is significant for a chloride of 93, a carbon dioxide of 35, and a serum glucose of 141. A prior liver function panel is significant for a total protein of 6.4 and an albumin of 3.2. B-natriuretic peptide is 52.1. Cardiac enzymes are negative x3. Total cholesterol 132, triglycerides 146, LDL cholesterol 76, and HDL cholesterol 27. TSH 2.002. Most recent CBC with differential and platelets reveals a white blood cell count of 9.42 with a left shift with 88.7% neutrophils, 8.2% lymphocytes, 2.5% monocytes, 0.1% eosinophils, and 0.1% basophils. The hemoglobin and hematocrit are 14.8 and 47.8, respectively. The platelet count is 245. DIAGNOSTIC STUDIES: Electrocardiogram, 07/29/2018: Sinus tachycardia at 115 beats per minute. Echocardiogram, 07/29/2018: Ejection fraction 65%. Chronic left ventricular hypertrophy. Trace mitral and tricuspid regurgitation. Chest x-ray, 07/28/2018: Hypoinflated lungs with atelectasis. Abdomen x-ray, 07/29/2018: No acute abdominal abnormality. Hip CT, 07/30/2018: Mild degenerative changes of the right S1 joint and right hip. No evidence of acute fracture or dislocation. If there is persistent pain, a clinical concern for ligamentous or tendinous abnormality, recommend MRI of the hip on an outpatient basis. CT of the chest, 07/30/2018: 1. A 2 mm nonocclusive filling defect in the lower lobe branch of the right pulmonary artery, may represent a chronic embolus or artifact. No evidence of embolus elsewhere. 2. Nonspecific hilar lymph node enlargement. Recommend 6-month followup with CT to document interval change. 3. Centrilobular emphysema. Bronchial wall thickening suggestive of bronchitis, either acute or chronic. Bilateral subsegmental atelectasis. 4. 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 ASSESSMENT AND PLAN: Mr. 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 Other than effort-dependent weakness in multiple muscles examined in both arms and both legs and volitional-appearing myoclonus, the patient's neurological examination is nonfocal. His laboratory data and other diagnostic studies have been reviewed and are documented above. Due to the chronicity of the myoclonus, the occurrence of multiple prior evaluations, and lack of response to multiple prior treatments, further evaluation and treatment of myoclonus is not recommended at this time. If he so desires, the patient may follow up as an outpatient. In this setting, prior evaluations and treatments may be reviewed and other evaluations and treatments may be offered. Thank you for this consultation. Please call again with any questions or concerns. TIME SPENT: 70 minutes. Job#: [id number] PKU MTDD
[2018-07-31] MEDS: HYDROCODONE/APAP 5MG-325MG TAB PO PRN ×2 (14:52→22:54)
--- NOTE | 2018-07-31 14:52 | Progress Note ---
DATE: INTERNAL MEDICINE PROGRESS NOTE SUBJECTIVE: A 63-year-old male who was recently diagnosed with COPD exacerbation. He is a heavy smoker. I talked with the family for a long time and the patient of course and told him to quit smoking. He is going to be oxygen dependent for now. He was started on breathing treatments. He was started on Pulmicort also. There is a questionable area of the lung that may be resolving pulmonary embolism also and mediastinal lymphadenopathy also. I discussed the case with Dr. Deleon. He does not recommend any type of cardiac workup right now. Dr. Matrínez does not think the patient could tolerate physical therapy. Dr. Miguel Newberry, chef german, is on the case also. He will look at the CAT scan and see if he really needs anticoagulation for possible old pulmonary embolism. In the meantime, I am going to put him on Lovenox. PHYSICAL EXAM HEART: Shows regular rhythm. Normal S1, S2 sounds. LUNGS: Clear bilaterally. VITAL SIGNS: Blood pressure 109/63, temperature 98 degrees, heart rate 71 per minute, respiratory rate 19 per minute, oxygen saturation 92%. On the BMP: Sodium 137, potassium 4.9, chloride 93, CO2 of 35, BUN 16, creatinine 0.76, glucose 141. On the CBC: White blood count 9.42, hemoglobin 14.8, hematocrit 47.8, platelet count 245,000. PT 12.6, INR 0.87, PTT is 27.9. AST 14, ALT 20, total bilirubin 0.7, alkaline phosphatase 44. So, CT of the chest showed emphysema, questionable pulmonary embolism, resolving tiny pulmonary embolism, and mediastinal adenopathy. FINAL IMPRESSION 1. Chronic obstructive pulmonary disease exacerbation with respiratory failure. 2. Chest pain, which is atypical. 3. Vomiting, which is resolved. 4. Chronic pain syndrome. 5. Anxiety disorder. 6. Difficulty walking. 7. Hypoxemia. 8. Posttraumatic stress disorder. 9. Depression. 10. Anxiety. 11. Lack of memory. PLAN OF TREATMENT: Albuterol q.4 hours as needed for shortness of breath, Zofran 4 mg IV q.4 hours as needed, alprazolam 1 mg 3 times a day as needed, Tylenol 325 mg q.6 hours as needed, tramadol 50 mg q.4 hours as needed, nicotine patch 21 mg daily, Seroquel 25 mg at bedtime, metoprolol 50 mg daily, Ultracet 1 tablet q.4 to 6 hours as needed, furosemide 40 mg daily, aspirin 325 mg daily, Effexor 75 mg daily, trazodone 50 mg at bedtime, Toradol 10 mg IV q.4 hours as needed, Solu-Medrol 40 mg IV q.12 hours as needed, Seroquel 25 mg q.6 hours as needed. I am going to put him on Protonix also since the patient is taking Toradol and Solu-Medrol also for DVT prophylaxis. The case has been discussed with the family for at least an hour, explained the prognosis, treatment, and future recommendations. The patient of course is told to quit smoking. Job#: [id number] NEFTALI
[2018-07-31] MEDS ORDERED: LACTULOSE SYRUP 20 GM/30 ML UDC PO PRN (15:30)
--- NOTE | 2018-07-31 16:58 | Progress Note ---
DATE: July 31, 2018 PULMONARY MEDICINE PROGRESS NOTE SUBJECTIVE: Mr. Barrera was seen and examined at bedside. He is walking, but is limited by back pain. He is eating well. He has small bowel movement. One liter per minute by nasal cannula. 92% oxygen saturation. He did use BiPAP during sleep and he has an excellent subjective benefit. REVIEW OF SYSTEMS: No headaches, no bleeding. OBJECTIVE VITAL SIGNS: Afebrile, vital signs noted per electronic record. GENERAL: No acute distress, alert and calm. HEENT: Normocephalic and atraumatic. NECK: Supple. Throat is midline. LUNGS: Bilateral air entry, limited but clear. CARDIOVASCULAR: S1 and S2. No murmurs, rubs, or gallops. ABDOMEN: Soft and nontender. EXTREMITIES: No clubbing, no cyanosis. There is no edema. INTEGUMENT: No rash or purpura. LABS: Potassium 4.9, BUN 16, creatinine 0.8. White count 9.4, hematocrit 48, platelets 245. IMPRESSION 1. Acute respiratory failure, status post BiPAP salvage. 2. Chronic obstructive pulmonary disease with exacerbation. 3. Obesity, possible obesity hypoventilation. 4. Possible obstructive sleep apnea. 5. Abnormal chest radiography, history of more likely old pulmonary embolism versus artifact. 6. Weakness . 7. Constipation. Wean the Solu-Medrol off and start prednisone. Treat his pain. Encourage ambulation. I reviewed the CAT scan, but this is chronic PE. He can probably get prophylactic doses of Lovenox and stay off anticoagulation from a pulmonary point of view. Patient can get some bowel medicine including stool softener and even laxatives as needed for the early constipation. Continue BiPAP at night. He needs outpatient PFTs and sleep studies. Job#: [id number] FARHAT
[2018-07-31] MEDS: DOCUSATE SODIUM 100 MG CAP PO SCH (18:07)
[2018-07-31] MEDS: QUETIAPINE FUMARATE 25 MG TAB PO SCH (21:00)
[2018-07-31] MEDS ORDERED: ENOXAPARIN SOD INJ 60 MG/0.6 ML SYR SC SCH (21:00)
[2018-07-31] MEDS: TRAZODONE HCL 50 MG TAB PO SCH (22:53)
[2018-07-31] MEDS: ONDANSETRON HCL INJ 2 MG/ML VIAL IV PRN (23:34)
[2018-08-01] VITALS (7 sets, daily range): BP systolic 103–118; BP diastolic 57–73
[2018-08-01] MEDS: QUETIAPINE FUMARATE 25 MG TAB PO SCH ×2 (00:03→20:42)
[2018-08-01] MEDS: TRAMADOL HCL 50 MG TAB PO PRN ×3 (04:04→23:00)
[2018-08-01] MEDS: ALPRAZOLAM 1 MG TAB PO PRN ×2 (05:15→14:22)
[2018-08-01 05:42] LABS: ANION GAP 12.8 mmol/L (8-16); BLOOD UREA NITROGEN 25 mg/dL (7-26); BUN/CREATININE RATIO 31 (6-25); CALCIUM 8.6 mg/dL (8.4-10.2); CARBON DIOXIDE 38 mmol/L (22-29); CHLORIDE 95 mmol/L (98-107); CREATININE, SERUM 0.81 mg/dL (0.72-1.25); EST GLOMERULAR FILTRATION RATE > 60 ML/MIN (60-); GLUCOSE 139 mg/dL (74-118); POTASSIUM 3.8 mmol/L (3.5-5.1); SODIUM 142 mmol/L (136-145)
[2018-08-01] MEDS: BUDESONIDE 90 MCG FLEXHALER IH SCH (07:28)
--- NOTE | 2018-08-01 07:30 | NUR ---
Patient received asleep and on Bipap and tolerating well with O2 sats at 95%. Respirations are even and unlabored. Denies any pain at this time. V/S are stable
[2018-08-01] MEDS: HYDROCODONE/APAP 5MG-325MG TAB PO PRN ×2 (07:59→18:41)
[2018-08-01] MEDS: PANTOPRAZOLE SOD 40 MG TABEC PO SCH (07:59)
[2018-08-01] MEDS: ASPIRIN 325 MG TAB PO SCH (09:36)
[2018-08-01] MEDS: DOCUSATE SODIUM 100 MG CAP PO SCH ×2 (09:36→16:52)
[2018-08-01] MEDS: FUROSEMIDE INJ 10 MG/ML 4 ML VIAL IV SCH (09:36)
[2018-08-01] MEDS: PREDNISONE 20 MG TAB PO SCH (09:37)
[2018-08-01] MEDS: VENLAFAXINE HCL 75 MG CAPCR PO SCH (09:37)
[2018-08-01] MEDS: METOPROLOL SUCCINATE 50 MG TAB XL PO SCH (09:37)
[2018-08-01] MEDS: NICOTINE 21 MG/EA PATCH TOP SCH (09:37)
--- NOTE | 2018-08-01 10:10 | NUR ---
Wallpaper Inspector to bedside to discuss plan of care with patient/family. CM/SW role and care transitions discussed. Anticipated discharge plan discussed along with duration of care. CM/SW discussed patients right to make decisions in care. CM/SW work hours given. Patient lives: PATIENT LIVES IN 2 STORY HOME WITH AND CHILDREN; PATIENT ROOM IS ON SECOND FLOOR Admit/Transfer: ED POA/Emergency contact: : OSMANI LEE: [phone] Current/Previous Home Health: NONE AT THIS TIME PCP/Follow-up Care: DR. YAZ BEST Current/Previous DME: DON Other Services: NONE AT THIS TIME Employment Status: EMPLOYED Areas of Concerns: MOBILITY Referral Needs: [facility] Education Needs: NONE IMM/CHAND given and signed (if applicable): NO Goal for discharge: PATIENT GOAL IS TO RETURN HOME WITH INDEPENDENT WITH NO NEEDS CM Left business card at the bedside with contact information. Name and number was also written on the patients whiteboard. Patient verbalized understanding of discussion. CM will follow-up with ongoing discharge and transition of care needs.
--- NOTE | 2018-08-01 10:30 | NUR ---
Up with assistance and use of walker to bathroom and tolerated well. Patient states that he had a bowel movement. Patient tolerated ambulation well.
--- NOTE | 2018-08-01 11:30 | NUR ---
Dr. Deleon here to see patient. V/S are stable. Denies any chest pain or discomfort
[2018-08-01] MEDS: TRAMADOL/APAP 37.5MG-325MG TAB PO PRN (12:36)
--- NOTE | 2018-08-01 13:05 | NUR ---
Dr. Cartwright here to see patient
--- NOTE | 2018-08-01 14:15 | NUR ---
Patient assisted to bathroom with use of his walker and tolerated well. Patient states that he had another bowel movement. V/S are stable.
--- NOTE | 2018-08-01 14:46 | Progress Note ---
DATE: INTERNAL MEDICINE PROGRESS NOTE SUBJECTIVE: He is doing a lot better right now. We are going to order physical and occupational therapy. PHYSICAL EXAM VITAL SIGNS: Blood pressure is 110/58, temperature 97.5, heart rate 73 per minute, respiratory rate 18 per minute, and ox saturation 94%. HEART: Regular rhythm. Normal S1 and S2 sounds. LUNGS: Clear bilaterally. No wheezing. No rhonchi. No crackles. ABDOMEN: Soft. EXTREMITIES: Show no evidence of cyanosis, edema or trauma. LABS: On the CBC; white blood count 9.42, hemoglobin 14.8, hematocrit 47.8, and platelet count 245,000. On the BMP; sodium 142, potassium 3.8, chloride 95, CO2 38, BUN 25, creatinine 0.81, glucose 139, calcium 8.6, magnesium 1.8, creatinine kinase 33, CK-MB 1.5, troponin 0.20, triglycerides 146. Cholesterol 132, LDL cholesterol 76, and HDL cholesterol 27, 2.002. IMPRESSION 1. Chronic obstructive pulmonary disease exacerbation. 2. Acute hypoxemic respiratory failure. 3. Morbid obesity. 4. Depression. 5. Post-traumatic stress disorder. 6. Tobacco abuse. PLAN OF TREATMENT: Continue with albuterol every 4 hours, budesonide 1 inhalation daily, Zofran 4 mg IV q.4 hours, alprazolam 1 mg 3 times a day as needed for anxiety, tramadol 50 mg q.4 hours as needed for pain, furosemide 40 mg daily, Protonix 40 mg daily, lactulose 20 g daily, Tylenol 335 mg q.6 hours as needed, Ultracet 1 tablet q.6 hours as needed. Continue with trazodone 50 mg at bedtime, [place] 1 tablet q.4 hours as needed for more severe pain, prednisone 40 mg daily, metoprolol 50 mg daily, Effexor 75 mg daily, Seroquel 25 mg q.6 hours, Colace 100 mg twice a day, aspirin 325 mg daily, nicotine 21 mg daily, and Seroquel 25 mg at bedtime, Lovenox 40 mg subcutaneous daily for DVT prophylaxis. We are going to order oxygen at home, to be daily wear at home. We are going to start physical and occupational therapy . Dr. Ortiz will be covering for me starting tomorrow until August 09 at 7 a.m. Job#: [id number] LASHONDA
--- NOTE | 2018-08-01 16:29 | Progress Note ---
DATE: August 01, 2018 PULMONARY MEDICINE PROGRESS NOTE SUBJECTIVE: Mr. Barrera was seen and examined at bedside. He continues to have low progress. He continues to enjoy using BiPAP at night. He feels more awake with this. No bowel movements. He is eating well, 3 liters per minute by nasal cannula right now. REVIEW OF SYSTEMS: No headaches. No rash. OBJECTIVE VITAL SIGNS: Afebrile. Vital signs noted per electronic record. GENERAL: No acute distress, alert and cooperative. HEENT: Normocephalic, atraumatic. NECK: Supple. Throat midline. LUNGS: Bilateral air entry. No wheezing. CARDIOVASCULAR: S1, S2. No murmurs, rubs, or gallops. ABDOMEN: Soft, nontender. EXTREMITIES: No clubbing. No cyanosis. There is only trace edema. INTEGUMENT: No rash or purpura. LABS: BUN 25, creatinine 0.8, potassium 3.8. IMPRESSION 1. Acute respiratory failure, resolved. 2. Hypoxemia. 3. Chronic obstructive pulmonary disease with exacerbation. 4. Elevated right hemidiaphragm restrictive disease. 5. Possible obesity hypoventilation syndrome. 6. Suspect sleep apnea. PLAN 1. Continue BiPAP at night for comfort. 2. Continue oxygen during daytime. 3. Patient will continue on antibiotics and prednisone which we are tapering. Job#: [id number] KIM
[2018-08-01] MEDS: ENOXAPARIN SOD INJ 60 MG/0.6 ML SYR SC SCH (16:52)
--- NOTE | 2018-08-01 17:16 | NUR ---
and daughters at bedside and patient is having pleasant visit. Patient and state that they will notify me when he is ready to take a shower. V/S are stable. Respirations are even and unlabored. No complaints of pain at this time. Sitting up in bed and ready to eat dinner.
--- NOTE | 2018-08-01 17:43 | Progress Note ---
DATE: August 01, 2018 SUBJECTIVE: Mr. Barrera was seen on rounds today. He is awake. He is alert. He right now wants some pain meds. No chest pains at this time. He just spoke with his nurse that he just received some medications at around 6 this morning. He was seen around 7:30. LABS: Sodium is 142, potassium 3.8, BUN 25, creatinine 0.81. OBJECTIVE VITAL SIGNS: Temperature 97.5, respirations 18, heart rate of 65, blood pressure of 110/58. HEART: Regular. LUNGS: Fair air entry. ABDOMEN: Same. BACK: Same. No new changes. IMPRESSION 1. Lumbar pain chronic. He was scheduled to receive lumbar fusion. 2. Right hip and right sacroiliac joint arthritis. 3. Post-traumatic stress disorder. PLAN: Supportive care ongoing. Most likely will not inpatient rehab at this point. Continue treatment for his emphysema. Job#: [id number] LASHONDA
[2018-08-01] MEDS: ONDANSETRON HCL INJ 2 MG/ML VIAL IV PRN (19:12)
[2018-08-01] MEDS: TRAZODONE HCL 50 MG TAB PO SCH (20:42)
[2018-08-02] VITALS (8 sets, daily range): BP systolic 96–125; BP diastolic 56–80
--- NOTE | 2018-08-02 01:10 | Progress Note ---
DATE: PSYCHIATRIC PROGRESS NOTE Patient evaluated and events noted. Patient is in the room. He is alert, awake, and oriented to situation. He reports feeling depressed and having issue with sleep. He denies any suicidal ideation. He reports feeling presence of family members in the room. He reports intermittently having hallucinations. He denies any problem with appetite. He denies any side effects of medications. ASSESSMENT 1. Bipolar disorder. 2. History of posttraumatic stress disorder. 3. Unspecified psychosis. PLAN 1. Reduce trazodone. 2. Continue with p.r.n. Xanax. 3. Add Seroquel 25 mg p.o. nightly. 4. Continue with Effexor. 5. Monitor for mood. 6. Add Seroquel p.r.n. Dictated By: MINE Huffman Job#: [id number] CQ
[2018-08-02] MEDS: HYDROCODONE/APAP 5MG-325MG TAB PO PRN ×4 (03:42→18:40)
[2018-08-02] MEDS: ALPRAZOLAM 1 MG TAB PO PRN ×2 (04:16→13:06)
[2018-08-02] MEDS: ONDANSETRON HCL INJ 2 MG/ML VIAL IV PRN ×4 (04:16→18:40)
--- NOTE | 2018-08-02 07:15 | NUR ---
BEDSIDE ROUNDS THIS AM PT REQUESTING ALL AVAILABLE PRN MEDICATIONS BE GIVEN CHERIE. THIS RN NOTIFIED PT MEDICATIONS WOULD BE GIVEN WHEN TIME ACCORDING TO MAR PT VERBALIZED UNDERSTANDING. RESP EVEN AND UNLABORED SATS AT 95% PT REQUESTING TO BE PLACED ON BIPAP AT THIS TIME. CALL LIGHT WITHIN REACH SIDE RAILS UP X2 WILL CONTINUE TO MONITOR
--- NOTE | 2018-08-02 08:10 | NUR ---
PT MEDICATED FOR PRN.
--- NOTE | 2018-08-02 08:10 | Progress Note ---
DATE: August 02, 2018 SUBJECTIVE: Mr. Barrera is a 53-year-old man with history of PTSD (posttraumatic stress disorder), history of bipolar disorder, hypertension, chronic back pain, came to the emergency room complaining of chest pain, vomiting, and feeling weak. PHYSICAL EXAMINATION: GENERAL: Today, he is awake and alert. VITAL SIGNS: Temperature is 97.5, blood pressure 121/80. HEART: Regular rate. LUNGS: Clear to auscultation. ABDOMEN: Soft. BLOOD WORK: White count 9.42, hemoglobin is 14.8. Potassium is 3.8, creatinine is 0.81, glucose 153. Blood gas showed a low oxygen [address]: Chest CT shows nonocclusive filling defect in the lower lobe branch of the right pulmonary artery, some enlargement of the lymph node, emphysema. ASSESSMENT: 1. Chronic obstructive pulmonary disease exacerbation. 2. Acute hypoxemic respiratory failure. 3. Morbid obesity. 4. Posttraumatic stress disorder. 5. Tobacco abuse. PLAN: At present time is to continue neb treatments. Continue Zofran for nausea. We are going to continue pain medication every 4 hours, furosemide 40 mg daily, Protonix 40 mg daily, trazodone and Effexor, metoprolol. He is on Lovenox subcutaneous for DVT prophylaxis. PT/OT consult were requested. All this was discussed with patient. All questions were answered to satisfaction. Job#: [id number]
[2018-08-02 08:15] LABS: ANION GAP 12.1 mmol/L (8-16); BLOOD UREA NITROGEN 23 mg/dL (7-26); BUN/CREATININE RATIO 28 (6-25); CALCIUM 8.5 mg/dL (8.4-10.2); CARBON DIOXIDE 40 mmol/L (22-29); CHLORIDE 93 mmol/L (98-107); CREATININE, SERUM 0.82 mg/dL (0.72-1.25); EST GLOMERULAR FILTRATION RATE > 60 ML/MIN (60-); GLUCOSE 131 mg/dL (74-118); POTASSIUM 4.1 mmol/L (3.5-5.1); SODIUM 141 mmol/L (136-145)
[2018-08-02] MEDS: DOCUSATE SODIUM 100 MG CAP PO SCH ×2 (08:17→16:11)
[2018-08-02] MEDS: PREDNISONE 20 MG TAB PO SCH (08:17)
[2018-08-02] MEDS: VENLAFAXINE HCL 75 MG CAPCR PO SCH (08:17)
[2018-08-02] MEDS: FUROSEMIDE 40 MG TAB PO SCH (08:17)
[2018-08-02] MEDS: PANTOPRAZOLE SOD 40 MG TABEC PO SCH (08:17)
[2018-08-02] MEDS: ASPIRIN 325 MG TAB PO SCH (08:17)
[2018-08-02] MEDS: METOPROLOL SUCCINATE 50 MG TAB XL PO SCH (08:18)
[2018-08-02] MEDS: NICOTINE 21 MG/EA PATCH TOP SCH (08:18)
--- NOTE | 2018-08-02 08:44 | NUR ---
PT QUESTIONING WHAT HE CAN HAVE FOR PAIN THIS RN NOTIFIED PT NORCO HAD BEEN GIVEN AT 0815, WHICH WAS GIVEN TO TREAT PAIN PT STATES "OH I FORGOT IT WAS GIVEN, ITS BECAUSE OF MY PTSD, CAN I HAVE ANYTHING ELSE?" THIS RN NOTIFIED PT HE WOULD BE MEDICATED FOR PAIN WHEN NEXT DOSE AVAILABLE.
[2018-08-02] MEDS: BUDESONIDE 90 MCG FLEXHALER IH SCH (09:30)
[2018-08-02] MEDS: ENOXAPARIN SOD INJ 60 MG/0.6 ML SYR SC SCH (16:11)
--- NOTE | 2018-08-02 16:17 | NUR ---
CM SPOKE TO PHYSICAL THERAPY. PT STATES PATIENT UNABLE TO WALK MUCH TODAY AND WILL CONTINUE EVAL LATER; HOWEVER, IF PATIENT GOES HOME HE WILL NEED WALKER. PT STATES HE MAY NEED SNF BUT IF HE DOES NOT QUALIFY, PLEASE DISCHARGE WITH WALKER.
--- NOTE | 2018-08-02 19:13 | Progress Note ---
DATE: August 02, 2018 PULMONARY MEDICINE PROGRESS NOTE SUBJECTIVE: Mr. Barrera was seen and examined at bedside. He continues to have slow progress. He currently has episode of seizures complicating his recovery during the last day. He is using BiPAP at night. During the daytime, his oxygen use is now at 3 liter per minute by nasal cannula. He is eating. REVIEW OF SYSTEMS: No headaches, no rash. OBJECTIVE VITAL SIGNS: Afebrile. Vital signs noted per electronic record. GENERAL: No acute distress, alert and calm. HEENT: Normocephalic, atraumatic. NECK: Supple. Throat midline. LUNGS: Mildly decreased air entry, mostly clear. CARDIOVASCULAR: S1, S2. No murmurs, rubs, or gallops. ABDOMEN: Soft, nontender. EXTREMITIES: No clubbing. No cyanosis. There is trace edema. INTEGUMENT: No rash or purpura. LABS: Potassium 4.1, creatinine 0.8. White count 9, hematocrit 48. IMPRESSION 1. Chronic obstructive pulmonary disease with exacerbation. 2. Obesity. 3. Suspicion for obesity hypoventilation syndrome. 4. Elevated right hemidiaphragm with thoracic restriction. 5. Acute respiratory failure, resolved. 6. Hypoxemia, still on oxygen. PLAN 1. Continue weaning oxygen. 2. Continue BiPAP at night to assist his lungs especially during sleep with suspected obstructive sleep apnea. 3. Antibiotics continue. 4. He remains on bronchodilators as well as intermittent steroids as needed. Job#: [id number] LASHONDA
[2018-08-02] MEDS: QUETIAPINE FUMARATE 25 MG TAB PO SCH (21:54)
[2018-08-02] MEDS: TRAZODONE HCL 50 MG TAB PO SCH (21:54)
[2018-08-03] MEDS: ALPRAZOLAM 1 MG TAB PO PRN ×3 (00:35→21:07)
[2018-08-03] MEDS: HYDROCODONE/APAP 5MG-325MG TAB PO PRN ×3 (00:35→19:35)
[2018-08-03 04:00] VITALS: BP 105/68
[2018-08-03] MEDS: PANTOPRAZOLE SOD 40 MG TABEC PO SCH (07:30)
[2018-08-03 08:00] VITALS: BP 140/86
[2018-08-03] MEDS: BUDESONIDE 90 MCG FLEXHALER IH SCH (08:00)
[2018-08-03] MEDS: DOCUSATE SODIUM 100 MG CAP PO SCH ×2 (08:21→17:04)
[2018-08-03] MEDS: ASPIRIN 325 MG TAB PO SCH (08:21)
[2018-08-03] MEDS: FUROSEMIDE 40 MG TAB PO SCH (08:22)
[2018-08-03] MEDS: NICOTINE 21 MG/EA PATCH TOP SCH (08:22)
[2018-08-03] MEDS: PREDNISONE 20 MG TAB PO SCH (08:22)
--- NOTE | 2018-08-03 08:28 | Progress Note ---
DATE: August 03, 2018 SUBJECTIVE: Mr. Barrera is a 53-year-old man with posttraumatic stress disorder, bipolar disorder, hypertension and chronic back pain, came to the emergency room with shortness of breath, chest pain, and feeling weak. He is in IMCU, on BiPAP as needed. PHYSICAL EXAMINATION GENERAL: Today, he is awake and alert. VITAL SIGNS: Temperature is 97.5, blood pressure 105/68. HEART: Regular rate. LUNGS: Decreased breath sounds bilateral. ABDOMEN: Distended and soft. BLOOD WORK: Hemoglobin is 14.8, white count is 9.42. Potassium is 4.1, creatinine is 0.82, glucose 131. Chest CT shows some nonocclusive filling defect in the lower lobe branch of the right pulmonary artery, shows also emphysema. ASSESSMENT 1. Acute hypoxemic respiratory failure. 2. Chronic obstructive pulmonary disease exacerbation. 3. Morbid obesity. 4. Probably sleep apnea. 5. Posttraumatic stress disorder. 6. Tobacco abuse. PLAN: Plan at the present time is to continue BiPAP as needed. Wean off oxygen. Continue IV antibiotics, neb treatments, and intermittent steroids. All this was discussed with patient. All questions were answered to satisfaction. Job#: [id number]
[2018-08-03] MEDS: VENLAFAXINE HCL 75 MG CAPCR PO SCH (08:32)
[2018-08-03] MEDS: TRAMADOL HCL 50 MG TAB PO PRN ×3 (08:32→23:59)
[2018-08-03] MEDS: METOPROLOL SUCCINATE 50 MG TAB XL PO SCH (08:47)
[2018-08-03 12:00] VITALS: BP 130/72
[2018-08-03] MEDS: ONDANSETRON HCL INJ 2 MG/ML VIAL IV PRN ×2 (12:34→19:35)
--- NOTE | 2018-08-03 15:00 | NUR ---
Physical therapy here and said patient walked 60 feet in room and outside of room and tolerated well. 02 sats decreased to 91% on room air according to PT and patient tolerated ambulation well.
--- NOTE | 2018-08-03 15:55 | Progress Note ---
DATE: August 03, 2018 PULMONARY MEDICINE PROGRESS NOTE SUBJECTIVE: Mr. Barrera was seen and examined at bedside. He was able to use BiPAP during the night with good subjective benefit. Currently 97% oxygen saturation on 2 liters per minute by nasal cannula. Patient is able to eat. He is having bowel movements. He still has low functional endurance. He is able to walk 60 feet, but he started to saturate at 92%. He had to stop due to shortness of breath. REVIEW OF SYSTEMS: No headaches, no diarrhea. OBJECTIVE VITAL SIGNS: Afebrile. Vital signs noted per electronic records. GENERAL: No acute distress, alert and calm. HEENT: Normocephalic, atraumatic. Throat midline. NECK: Supple. LUNGS: Moderate air entry, mildly decreased. No rhonchi. CARDIOVASCULAR: S1, S2. No murmurs, rubs, or gallops. ABDOMEN: Soft, nontender. EXTREMITIES: No clubbing. No cyanosis. There is only trace edema in the legs. INTEGUMENT: No rash. No purpura. LABS: No new updates. IMPRESSION 1. Chronic obstructive pulmonary disease with exacerbation. 2. Obesity, suspected obesity hypoventilation syndrome component. 3. Right hemidiaphragm elevation. 4. Low functional endurance and weakness. PLAN: We will wean down the steroids. Follow up on bronchodilators. Continue to mobilize. Patient will continue at this time on DVT prophylactic dosing. Continue to follow up GI ailments for resolution. Job#: [id number] KIM
[2018-08-03 16:00] VITALS: BP 133/79
[2018-08-03] MEDS: ENOXAPARIN SOD INJ 40 MG/0.4 ML SYR SC SCH (17:04)
[2018-08-03 19:29] VITALS: BP 121/75
[2018-08-03 20:00] VITALS: BP_SYST 121; BP_SYST 133; BP_DIAS 75; BP_DIAS 79
[2018-08-03] MEDS: TRAZODONE HCL 50 MG TAB PO SCH (21:07)
[2018-08-03] MEDS: QUETIAPINE FUMARATE 25 MG TAB PO SCH (21:07)
[2018-08-04] VITALS (10 sets, daily range): BP systolic 97–137; BP diastolic 51–97
[2018-08-04] MEDS: HYDROCODONE/APAP 5MG-325MG TAB PO PRN ×4 (04:09→21:35)
[2018-08-04] MEDS: ALPRAZOLAM 1 MG TAB PO PRN ×2 (06:12→17:58)
--- NOTE | 2018-08-04 07:09 | NUR ---
Report given to upcoming RN Rodriguez,walking round.
[2018-08-04] MEDS: PANTOPRAZOLE SOD 40 MG TABEC PO SCH (07:12)
[2018-08-04] MEDS: TRAMADOL HCL 50 MG TAB PO PRN ×3 (07:12→15:40)
[2018-08-04] MEDS: QUETIAPINE FUMARATE 25 MG TAB PO PRN (07:12)
[2018-08-04] MEDS: NICOTINE 21 MG/EA PATCH TOP SCH (08:11)
[2018-08-04] MEDS: VENLAFAXINE HCL 75 MG CAPCR PO SCH (08:11)
[2018-08-04] MEDS: FUROSEMIDE 40 MG TAB PO SCH (08:11)
[2018-08-04] MEDS: METOPROLOL SUCCINATE 50 MG TAB XL PO SCH (08:11)
[2018-08-04] MEDS: DOCUSATE SODIUM 100 MG CAP PO SCH ×2 (08:11→17:00)
[2018-08-04] MEDS: ASPIRIN 325 MG TAB PO SCH (08:11)
[2018-08-04] MEDS: PREDNISONE 20 MG TAB PO SCH (08:12)
--- NOTE | 2018-08-04 10:08 | Progress Note ---
DATE: August 04, 2018 SUBJECTIVE: Mr. Barrera is a 53-year-old man with history of posttraumatic stress disorder, bipolar disorder, hypertension, chronic back pain, came to the emergency room complaining of shortness of breath, chest pain, and feeling weak. He has been in IMCU, on BiPAP with low oxygen. PHYSICAL EXAMINATION: GENERAL: Today, he is awake and alert. He is feeling a little better. VITAL SIGNS: Temperature 97.3, blood pressure 117/65. HEART: Regular rate. LUNGS: Clear to auscultation. ABDOMEN: Soft. BLOOD WORK: White count 9.42, hemoglobin is 14.8. Potassium 4.1, creatinine is 0.82, glucose 131. Chest CT done on the shows nonocclusive defect in the lower lobe branch of the right pulmonary artery, emphysema. ASSESSMENT: 1. Acute hypoxic respiratory failure. 2. Chronic obstructive pulmonary disease exacerbation. 3. Morbid obesity. 4. Sleep apnea. 5. Posttraumatic stress disorder. 6. Tobacco abuse. 7. Anxiety. PLAN: At present time is to continue IV antibiotics, neb treatments. Patient is on BiPAP as needed. He is going to need home oxygen. Continue present treatment. All this was discussed with patient. All questions were answered to satisfaction. Job#: [id number]
[2018-08-04] MEDS: BUDESONIDE 90 MCG FLEXHALER IH SCH (10:56)
[2018-08-04] MEDS: LIDOCAINE 5% PATCH TP SCH (11:16)
[2018-08-04] MEDS: ONDANSETRON HCL INJ 2 MG/ML VIAL IV PRN ×2 (11:16→18:16)
[2018-08-04] MEDS ORDERED: SIMETHICONE 80 MG CHEW PO PRN (11:45)
[2018-08-04] MEDS ORDERED: IBUPROFEN 400 MG TAB PO PRN (11:45)
--- NOTE | 2018-08-04 12:54 | Progress Note ---
DATE: August 04, 2018 PULMONARY MEDICINE PROGRESS NOTE SUBJECTIVE: Mr. Barrera was seen and examined at bedside. He continues to have slow but steady progress. Three liters per minute by nasal cannula, 96% oxygen saturation. He is still using BiPAP at night with good subjective benefit, although he used it less last night. Had 2.3 liters in and 1.9 liters out. He did have a bowel movement yesterday. REVIEW OF SYSTEMS: No headaches, no bleeding. OBJECTIVE VITAL SIGNS: Afebrile. Vital signs noted per electronic record. GENERAL: No acute distress, alert and calm. HEENT: Normocephalic, atraumatic. NECK: Supple. Throat midline. LUNGS: Bilateral air entry, mildly decreased. Mostly clear. CARDIOVASCULAR: S1, S2. No murmurs, rubs, or gallops. ABDOMEN: Soft, nontender. EXTREMITIES: No clubbing. No cyanosis. There is only trace leg edema. INTEGUMENT: No rash. No purpura. IMPRESSION 1. Acute respiratory failure, resolved. 2. Obstructive sleep apnea on BiPAP therapy. 3. Hypoxemia, improving. 4. Presumptive chronic obstructive pulmonary disease with exacerbation. 5. Elevated right hemidiaphragm, consider thoracic restrictive disorder. PLAN 1. Continue lung expansion by incentive spirometry. 2. Continue prednisone tapering. He is on 30 mg a day of prednisone. 3. DVT prophylaxis with enoxaparin. 4. Nicotine patch on. 5. Continue bronchodilators. Job#: [id number]
--- NOTE | 2018-08-04 16:01 | NUR ---
Report given to Paresh Palomo RN. Pt ambulating to room with PT, belongings delivered. Pt denies SI, HI, AVH, plan to harm self.
--- NOTE | 2018-08-04 16:23 | NUR ---
Pt rec'd to room 106 per ambulation accompanied by physical therapist. RT called to set up BiPAP for CHAMP. Pt stable at this time, NAD observed or reported. O2 per NC @ 3LPM.
[2018-08-04] MEDS: ENOXAPARIN SOD INJ 40 MG/0.4 ML SYR SC SCH (17:20)
[2018-08-04] MEDS: TRAZODONE HCL 50 MG TAB PO SCH (21:35)
[2018-08-04] MEDS: QUETIAPINE FUMARATE 25 MG TAB PO SCH (21:35)
[2018-08-05] VITALS (8 sets, daily range): BP systolic 97–140; BP diastolic 51–69
[2018-08-05] MEDS: ALPRAZOLAM 1 MG TAB PO PRN ×3 (04:04→18:03)
--- NOTE | 2018-08-05 06:40 | NUR ---
HANDOFF REPORT REC'D DURING WALKING ROUNDS WITH OUTGOING REAL ESTATE INVESTOR NURSE. PT SLEEPING AT THIS TIME WITH EVEN AND UNLABORED RESPIRATIONS.
--- NOTE | 2018-08-05 06:57 | Progress Note ---
DATE: August 04, 2018 PSYCHIATRIC PROGRESS NOTE Patient evaluated and events noted. Patient is in his room. He is complaining of poor sleep. He also reports anxiety. He denies any depression, any hallucinations or any suicidal ideation. No side effects of medications. ASSESSMENT: Bipolar and history of posttraumatic stress disorder and psychosis. PLAN: Increase Seroquel 25 mg p.o. at bedtime to 50 mg p.o. at bedtime. Continue other medications. Supportive therapy. DICTATED BY MINE RAYMOND Job#: [id number] MA
[2018-08-05] MEDS: BUDESONIDE 90 MCG FLEXHALER IH SCH (08:00)
--- NOTE | 2018-08-05 08:00 | NUR ---
87% ROOM AIR 02 SAT RESTING. FOR HOME 02 EVAL. 02 SAT 94-95% ON 3LPM RESTING
[2018-08-05] MEDS: PANTOPRAZOLE SOD 40 MG TABEC PO SCH (08:30)
[2018-08-05] MEDS: ONDANSETRON HCL INJ 2 MG/ML VIAL IV PRN (09:04)
[2018-08-05] MEDS: PREDNISONE 20 MG TAB PO SCH (09:04)
[2018-08-05] MEDS: METOPROLOL SUCCINATE 50 MG TAB XL PO SCH (09:04)
[2018-08-05] MEDS: VENLAFAXINE HCL 75 MG CAPCR PO SCH (09:04)
[2018-08-05] MEDS: NICOTINE 21 MG/EA PATCH TOP SCH (09:04)
[2018-08-05] MEDS: QUETIAPINE FUMARATE 25 MG TAB PO PRN ×2 (09:04→15:52)
[2018-08-05] MEDS: FUROSEMIDE 40 MG TAB PO SCH (09:04)
[2018-08-05] MEDS: ASPIRIN 325 MG TAB PO SCH (09:04)
[2018-08-05] MEDS: LIDOCAINE 5% PATCH TP SCH (09:04)
[2018-08-05] MEDS: DOCUSATE SODIUM 100 MG CAP PO SCH ×2 (09:04→17:30)
--- NOTE | 2018-08-05 09:32 | Progress Note ---
DATE: August 05, 2018 SUBJECTIVE: Mr. Barrera is a 53-year-old male with history of posttraumatic stress disorder, bipolar disorder, hypertension, chronic back pain. He came to the emergency room complaining of shortness of breath, chest pain, and feeling weak. He is doing better. He is on low oxygen nasal cannula. PHYSICAL EXAMINATION GENERAL: He is awake and alert. He had a panic attack today. VITAL SIGNS: Temperature is 96.1, blood pressure 109/57. HEART: Regular rate. LUNGS: Clear to auscultation. ABDOMEN: Soft. BLOOD WORK: White count 9.42, hemoglobin 14.8, hematocrit 47.8. Potassium 4.1, creatinine 0.82, glucose 131. Chest CT shows a nonocclusive filling defect in the right pulmonary artery and emphysema. ASSESSMENT AND PLAN 1. Acute hypoxic respiratory failure, improving. 2. Chronic obstructive pulmonary disease exacerbation. 3. Morbid obesity. 4. Sleep apnea. 5. Posttraumatic stress disorder. 6. Bipolar disorder and psychosis. 7. Tobacco abuse. The plan at the present time is to continue p.o. prednisone, BiPAP as needed, IV antibiotics. Psych saw the patient today. Increase Seroquel at night from 25 to 50. The patient is still complaining of not being able to sleep. Will discuss with psych further management of his insomnia. All this was discussed with the patient. All questions were answered to satisfaction. Job#: [id number]
--- NOTE | 2018-08-05 11:18 | NUR ---
Orders rec'd from MINE Portillo, to continue Xanax PRN.
[2018-08-05] MEDS: HYDROCODONE/APAP 5MG-325MG TAB PO PRN ×3 (11:25→21:29)
--- NOTE | 2018-08-05 13:21 | NUR ---
Nutrition Screen Note RD Recommendation for Physician: -Continue cardiac diet as ordered Plan of Care: RD following, monitoring for tolerance and adequacy Nutrition reason for involvement: LOS Primary Diagnose(s): 1. Acute hypoxic respiratory failure, improving. 2. Chronic obstructive pulmonary disease exacerbation. 3. Morbid obesity. 4. Sleep apnea. 5. Posttraumatic stress disorder. 6. Bipolar disorder and psychosis. 7. Tobacco abuse. PMH: PTSD, bipolar disorder, hypertension, chronic back pain Ht: 73in Wt: 280lb BMI: 36.9kg/m2 IBW: 184lb RD Assessment: (08/05) Chart reviewed. Labs and meds reviewed. 53 yo M, who is admitted for chest pain. Visited pt in the room. Pt reports good appetite with 100% recorded meal intake. No GI complains noted. LBM 1/3, normal per pt. Pt denies any chewing or swallowing difficulty. 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 Will continue to monitor and follow. Current Diet: cardiac diet Malnutrition Evaluation (08/05/2018) The patient does not meet criteria for a specified degree of malnutrition at this time. Will re-evaluate at follow-up as appropriate. Diet Education Needs Assessment: Diet education not indicated. Nutrition Care Level: low Signed: Lyndsay Mcnamara, MS, RD, LD
[2018-08-05] MEDS: TRAMADOL HCL 50 MG TAB PO PRN (14:00)
--- NOTE | 2018-08-05 15:00 | Progress Note ---
DATE: August 05, 2018 PULMONARY MEDICINE PROGRESS NOTE SUBJECTIVE: Mr. Barrera was seen and examined at bedside. He continues to have slow progress. He was having some hypotension, relatively symptomatic today when he was going with physical therapy. He had bowel movement. He is eating. REVIEW OF SYSTEMS: No headaches, no rash. OBJECTIVE VITAL SIGNS: Afebrile. Vital signs noted per the chart record. GENERAL: No acute distress, alert and calm. HEENT: Normocephalic, atraumatic. NECK: Supple. Throat midline. LUNGS: Bilateral air entry, decreased breath sounds, rare rhonchi. CARDIOVASCULAR: S1, S2. No murmurs, rubs, or gallops. ABDOMEN: Soft, nontender. EXTREMITIES: No clubbing. No cyanosis. There is only trace edema. INTEGUMENT: No rash. No purpura. LABS: No new updates. IMPRESSIONS 1. Acute respiratory failure, status post bilevel positive airway pressure salvage, now off bilevel positive airway pressure. 2. Presumptive obstructive sleep apnea, on bilevel positive airway pressure at night with great subjective benefit. 3. Chronic obstructive pulmonary disease with exacerbation. 4. Obesity, possibly obesity hypoventilation syndrome. 5. Elevated right hemidiaphragm. 6. Hypoxemia, 87% room air oxygen saturation at rest this morning. PLANS 1. Continue weaning steroids. 2. He is on prednisone 30 mg a day right now. 3. Continue bronchodilators. 4. Patient can continue BiPAP empirically for sleep apnea at night and get outpatient sleep studies. Patient can continue bronchodilators. He can continue mobilization and reconditioning. Job#: [id number] REINA
--- NOTE | 2018-08-05 15:35 | NUR ---
call placed to Dr. Newberry at this time to request order for home O2 set up since pt qualifies for home O2.
[2018-08-05] MEDS: ENOXAPARIN SOD INJ 40 MG/0.4 ML SYR SC SCH (17:30)
--- NOTE | 2018-08-05 19:02 | NUR ---
received patient in bed, aaox3. no pain voiced, no needs voiced. patient is in stable condition. encouraged to call for assistance as needed, patient verbalized understanding. RT to provide extension for O2.
[2018-08-05] MEDS: TRAZODONE HCL 50 MG TAB PO SCH (22:21)
[2018-08-05] MEDS: QUETIAPINE FUMARATE 25 MG TAB PO SCH (22:21)
[2018-08-06] VITALS (8 sets, daily range): BP systolic 105–126; BP diastolic 56–75
[2018-08-06] MEDS: ALPRAZOLAM 1 MG TAB PO PRN ×2 (02:14→12:07)
[2018-08-06] MEDS: BUDESONIDE 90 MCG FLEXHALER IH SCH (07:40)
[2018-08-06] MEDS: PANTOPRAZOLE SOD 40 MG TABEC PO SCH (08:30)
--- NOTE | 2018-08-06 08:40 | NUR ---
MD SHI INTO SEE PT, DISCUSSED POC WITH PT, STATES OKAY TO DISCHARGE IF OKAY WITH ALL OTHER PHYSICIANS, MADE PT AWARE
[2018-08-06] MEDS: METOPROLOL SUCCINATE 50 MG TAB XL PO SCH (09:00)
[2018-08-06] MEDS: DOCUSATE SODIUM 100 MG CAP PO SCH ×2 (10:00→17:00)
[2018-08-06] MEDS: VENLAFAXINE HCL 75 MG CAPCR PO SCH (10:00)
[2018-08-06] MEDS: NICOTINE 21 MG/EA PATCH TOP SCH (10:00)
[2018-08-06] MEDS: LIDOCAINE 5% PATCH TP SCH (10:00)
[2018-08-06] MEDS: ASPIRIN 325 MG TAB PO SCH (10:00)
[2018-08-06] MEDS: PREDNISONE 20 MG TAB PO SCH (10:00)
[2018-08-06] MEDS: FUROSEMIDE 40 MG TAB PO SCH (10:00)
--- NOTE | 2018-08-06 10:02 | NUR ---
PT RAISING VOICE, "I AM NOT TAKING HIM HOME, I HAVE NOT SPOKEN WITH ANY OF THESE DR'S, I DO NOT KNOW WHAT THE HELL IS GOING ON WITH MY ", ATTEMPTED TO EXPLAIN POC FOR PT, STATES "I AM ALREADY LATE FOR WHERE I NEED TO BE, I WILL BE BACK HERE LATER FOR ANSWERS, I AM NOT TAKING HIM HOME THIS WAY"
[2018-08-06] MEDS: HYDROCODONE/APAP 5MG-325MG TAB PO PRN ×3 (10:25→19:13)
--- NOTE | 2018-08-06 10:26 | Discharge Summary ---
Mr. Barrera is a 53-year-old man with a history of depression, bipolar disorder, hypertension, chronic back pain, came to the emergency room complaining of chest pain and feeling weak. He also has a history of COPD. His oxygen has been low, so we are ordering oxygen at home. PHYSICAL EXAMINATION GENERAL: Today, he is awake and he is alert. VITALS: Temperature is 96.6, blood pressure 113/65. HEART: Regular rate. LUNGS: Clear to auscultation. ABDOMEN: Soft. BLOOD WORK: White count 9.42, hemoglobin 14.8. Potassium 4.1, creatinine 0.82. He had a chest CT done that shows emphysema and nonspecific hilar lymph node enlargement. Patient is going to need to follow up with pulmonary. ASSESSMENT AND PLAN 1. Acute hypoxic respiratory failure, improving. 2. Chronic obstructive pulmonary disease exacerbation. 3. Morbid obesity. 4. Sleep apnea. 5. Posttraumatic stress disorder. 6. Bipolar disorder. 7. Tobacco abuse. PLAN: At the present time, is to discharge the patient home with O2 nasal cannula. He is going to need to follow up with pulmonary for the abnormal chest CT that he has at the present time. He is also needs to follow up with psychiatrist. He is to continue all his inhalers and home medications. We are going to put him on prednisone for 2 more weeks. He needs also followup with his PCP in 1 week. He is to call me or come back to the emergency room if any recurrent problem. All this was discussed with the patient and all questions were answered to satisfaction. Job#: [id number] DOUG
--- NOTE | 2018-08-06 10:27 | NUR ---
PT MEDICATED PER MD ORDER FOR PAIN IN LOWER BACK, EDUCATED TO CALL FOR ASSISTANCE PRIOR TO GETTING OOB, PT VERBALIZED UNDERSTANDING, CALL LIGHT WITHIN REACH
--- NOTE | 2018-08-06 12:08 | NUR ---
AMBULATED IN HALLWAY WITH USE OF WALKER WITH PHYSICAL THERAPIST AT SIDE, PORTABLE O2 IN USE
--- NOTE | 2018-08-06 13:17 | NUR ---
PT AMBULATED 200 FEET TODAY WITH P.T. AND R.W. ORDERS FOR HOME 02 CHOICE LETTER SIGNED AND ON CHART FOR [facility] TO PT PT DISCHARGING HOME TODAY AFTER CLEARED BY PULMONARY CALLED [facility] AT [phone] FAXED ORDERS TO [phone] CONFIRMATION REC'D SPOKE WITH ANTONIO AT [facility] AND NOTIFIED HER TO DELIVER PORTABLE TO HOSPITAL PT WILL BE DISCHARGED HOME TODAY NURSE MEHNAZ SPANGLER
[2018-08-06] MEDS: ONDANSETRON HCL INJ 2 MG/ML VIAL IV PRN (14:50)
[2018-08-06] MEDS: ENOXAPARIN SOD INJ 40 MG/0.4 ML SYR SC SCH (17:00)
--- NOTE | 2018-08-06 17:27 | NUR ---
SPOKE WITH MD HUSAIN, WILL BE ROUNDING, PATIENT MAY DISCHARGE BEFORE HE ROUNDS IF NEEDED, TELEPHONED MD SHI TO MAKE AWARE THAT PT IS STILL AT HOSPITAL AND IS CONCERNED REGARDING DISCHARGING HIM HOME AT THIS TIME
--- NOTE | 2018-08-06 17:27 | NUR ---
SPOKE WITH MD TREVINO, OKAY TO DISCHARGE FROM HER STANDPOINT, MAY FOLLOW UP OUT PATIENT
--- NOTE | 2018-08-06 18:08 | NUR ---
SPOKE WITH MD Tatiana ALCANTARA, LEGAL EXECUTIVE FOR MD [facility], STATES TO DISCHARGE PT IF OTHER CONSULTS ARE OKAY WITH DISCHARGE, TELEPHONED OSMANI AT [phone], LEFT MESSAGE TO MAKE AWARE THAT PT IS DISCHARGED, AWAITING CALL BACK
--- NOTE | 2018-08-06 18:35 | NUR ---
VIA SPEAKER PHONE MD HUSAIN IN ROOM, ATTEMPTING TO ANSWER PT AND 'S QUESTIONS, MD HUSAIN UNABLE TO ANSWER ALL OF PT 'S QUESTIONS AT THIS TIME, STILL INSISTING THAT PT DOES NOT NEED TO BE DISCHARGED AT THIS TIME DUE TO " I DON'T KNOW WHAT'S WRONG WITH HIM AND YOU ALL ARE SENDING HIM HOME", TELEPHONED MD Tatiana ALCANTARA, AWAITING CALL BACK
--- NOTE | 2018-08-06 19:00 | NUR ---
received patient in bed. patient c/o chronic lower back pain 01/10. breathing is even and unlabored on 3l/NC, aaox3, stable condition. patient is aware of discharge orders, but refusing to leave. AM nurse placed second call to Dr. Maira Eugene, awaiting call back.
--- NOTE | 2018-08-06 20:00 | NUR ---
SECOND CALL PLACED TO DR. Maira ALCANTARA REGARDING PATIENTS DISCHARGE ORDER. AWAITING CALL BACK.
--- NOTE | 2018-08-06 20:11 | Progress Note ---
DATE: August 06, 2018 PULMONARY MEDICINE PROGRESS NOTE SUBJECTIVE: Mr. Barrera was seen and examined at bedside. He is continuing to use BiPAP with good subjective benefit at night. He is on 2 liters per minute by nasal cannula in daytime. Patient walked today. Patient and voiced serious concerns regarding his recent 2 hospitalizations and they voiced they were worried about going home. I tried my best to answer their questions, but the while on the phone ensued to notify us that if something happens to her wrong, she will gaye the hospital and to the doctors whose names is on the wall. Patient was given chance to ask any questions as well as the , although finally hung up as I stated. REVIEW OF SYSTEMS: No headaches, no rash. OBJECTIVE VITAL SIGNS: Afebrile. Vital signs noted per electronic record. GENERAL: In no acute distress, alert and calm. HEENT: Normocephalic, atraumatic. NECK: Supple. Throat midline. LUNGS: Bilateral air entry is mildly decreased, mostly clear. CARDIOVASCULAR: S1, S2. No murmurs, rubs, or gallops. ABDOMEN: Soft, nontender, obese. EXTREMITIES: No clubbing. No cyanosis. There is only trace edema. INTEGUMENT: No rash. No purpura. LABS: Reviewed per electronic record, no significant updates. IMPRESSION 1. Acute respiratory failure, resolved. 2. Hypoxemia. 3. Presumed chronic obstructive pulmonary disease with exacerbation. 4. Elevated right hemidiaphragm, possible thoracic restriction, possible obesity hyperventilation syndrome concurrent. 5. Presumed obstructive sleep apnea with subjective benefits of BiPAP use. At this time, will continue BiPAP at night or as inpatient. He is recommend for outpatient sleep studies and I did check to see if we will be able to order and get authorize sleep studies as I sent order to the sleep lab. Patient is worked on the followup locally as outpatient if he does go home. Continue weaning steroids. Continue bronchodilator as needed that he needs outpatient PFTs and rest of pulmonary workup. Job#: [id number] LASHONDA
--- NOTE | 2018-08-06 20:46 | NUR ---
SPOKE WITH DR. ALCANTARA, ORDERS FOR DISCHARGE TO BE HELD AT THIS TIME. HE AGREES WITH DR. HUSAIN RECOMMENDATION FOR [facility]. ORDERS TO BE ENTERED AND IMPLEMENTED.
[2018-08-06] MEDS: QUETIAPINE FUMARATE 25 MG TAB PO SCH (20:59)
[2018-08-06] MEDS: TRAZODONE HCL 50 MG TAB PO SCH (20:59)
[2018-08-07] VITALS (7 sets, daily range): BP systolic 112–130; BP diastolic 59–72
[2018-08-07] MEDS: BUDESONIDE 90 MCG FLEXHALER IH SCH (06:00)
--- NOTE | 2018-08-07 06:57 | NUR ---
Patient slept through the night without any complaints. No anxiety attacks, no c/o pain. Remains in stable condition.
[2018-08-07] MEDS: HYDROCODONE/APAP 5MG-325MG TAB PO PRN ×2 (08:30→18:03)
[2018-08-07] MEDS: NICOTINE 21 MG/EA PATCH TOP SCH (08:32)
[2018-08-07] MEDS: FUROSEMIDE 40 MG TAB PO SCH (08:32)
[2018-08-07] MEDS: DOCUSATE SODIUM 100 MG CAP PO SCH ×2 (08:32→18:00)
[2018-08-07] MEDS: VENLAFAXINE HCL 75 MG CAPCR PO SCH (08:32)
[2018-08-07] MEDS: PREDNISONE 20 MG TAB PO SCH (08:32)
[2018-08-07] MEDS: PANTOPRAZOLE SOD 40 MG TABEC PO SCH (08:32)
[2018-08-07] MEDS: ASPIRIN 325 MG TAB PO SCH (08:32)
[2018-08-07] MEDS: LIDOCAINE 5% PATCH TP SCH (08:32)
[2018-08-07] MEDS: METOPROLOL SUCCINATE 50 MG TAB XL PO SCH (08:32)
--- NOTE | 2018-08-07 08:41 | NUR ---
MEDICATED PER MD ORDER FOR LOW BACK PAIN 03/12, EDUCATED TO NOT GET OOB WITHOUT CALLING FOR ASSISTANCE, PT VERBALIZED UNDERSTANDING, CALL LIGHT WITHIN REACH
--- NOTE | 2018-08-07 10:10 | NUR ---
Visit made by the Spiritual Care Department Pastoral Visitor, Tierra Albert. PV provided pastoral presence, prayer, hospitality, and supportive listening. Pastoral Visitor informed pt/family of the scope of Finance Vice President Services and availability. NOEMÍ OSEI Glassworker Spiritual Care Department O: [phone] Pager: [phone] ([phone] number calling from)
[2018-08-07] MEDS: ONDANSETRON HCL INJ 2 MG/ML VIAL IV PRN (11:10)
[2018-08-07] MEDS: ALPRAZOLAM 1 MG TAB PO PRN ×2 (11:10→19:29)
--- NOTE | 2018-08-07 11:12 | NUR ---
SHERLY (Sree) met with patient regarding discharge plan for [facility]. SHERLY informed patient of LTAC Choices and he picked the [facility] facility across from [address]. Patient is aware and in agreement to discharge plan. SHERLY also spoke with patient Zoe who is requesting that she be called or the assessment scheduled when she is at patient's bedside. RN agreed to contact when Arab rep arrives for the evaluation. SHERLY/ CM to inform liaison about 's request. SHERLY left a message for Marika Cuadra Liaison [phone] requesting a call back.
--- NOTE | 2018-08-07 13:32 | Progress Note ---
DATE PULMONARY/CRITICAL CARE PROGRESS NOTE I am covering for Dr. Newberry today. SUBJECTIVE: Patient reports feeling better. He is not having cough or congestion. He walked to the bathroom. OBJECTIVE VITAL SIGNS: The patient is afebrile, the blood pressure is 130/72, and saturation is 99% on 3 liters. HEENT: Shows no facial swelling or erythema. CARDIAC: Reveals regular rate and rhythm with normal S1 and S2. LUNGS: Auscultation of the lungs reveals prolonged expiratory phase bilaterally. Lung joseph are otherwise clear. ABDOMEN: Soft and nontender. There is no rebound or guarding. EXTREMITIES: Examination of the extremity shows no leg edema or calf tenderness. There is no cyanosis or clubbing. SKIN: Examination shows no rashes. NEUROLOGIC: Exam shows no focal abnormalities. IMPRESSION 1. Acute respiratory failure that has resolved. 2. Chronic obstructive pulmonary disease with exacerbation. 3. Elevated right hemidiaphragm. 4. Obesity hypoventilation syndrome. 5. Obstructive sleep apnea. PLAN Continue to use BiPAP at night and as needed during the day. Patient is awaiting transfer to [place]. Continue to wean steroids. Continue oxygen. Continue bronchodilators. Job#: [id number] STEVEN
--- NOTE | 2018-08-07 15:10 | NUR ---
attempted to tx pt but pt politely refusing 2/2 fatigue from showering. f/u 08-09-18 Addendum: 08/07/18 at 1511 by Cassius Segunod PTA Amended: Links added.
[2018-08-07] MEDS: ENOXAPARIN SOD INJ 40 MG/0.4 ML SYR SC SCH (18:00)
--- NOTE | 2018-08-07 19:25 | NUR ---
WALKING ROUNDS PERFORMED, RECEIVED PT LAYING SEMI FOWLERS IN BED, AAOX3, RR EVEN AND NON-LABORED, ON RA. PT REQUESTING ANXIETY MEDICATION. LEFT PT LAYING SEMI FOWLERS IN BED, BED IN LOW LOCKED POSITION, SIDE RAILS UPX2, CALL LIGHT AND PHONE WITHIN REACH.
[2018-08-07] MEDS: TRAZODONE HCL 50 MG TAB PO SCH (21:16)
[2018-08-07] MEDS: QUETIAPINE FUMARATE 25 MG TAB PO SCH (21:16)
[2018-08-08] VITALS (9 sets, daily range): BP systolic 111–128; BP diastolic 56–72
[2018-08-08] MEDS: ALPRAZOLAM 1 MG TAB PO PRN ×3 (05:32→21:03)
--- NOTE | 2018-08-08 05:39 | NUR ---
PT AMBULATORY TO BATHROOM AND BACK TO BED WITH WALKER. PT REPORTS WANTS TO GET SOME MORE SLEEP, RE-APPLIED BIPAP. RESPIRATORY NOTIFIED.
[2018-08-08] MEDS: FUROSEMIDE 40 MG TAB PO SCH (08:48)
[2018-08-08] MEDS: DOCUSATE SODIUM 100 MG CAP PO SCH ×2 (08:48→17:24)
[2018-08-08] MEDS: VENLAFAXINE HCL 75 MG CAPCR PO SCH (08:48)
[2018-08-08] MEDS: ASPIRIN 325 MG TAB PO SCH (08:48)
[2018-08-08] MEDS: PANTOPRAZOLE SOD 40 MG TABEC PO SCH (08:48)
[2018-08-08] MEDS: METOPROLOL SUCCINATE 50 MG TAB XL PO SCH ×2 (08:49→12:19)
[2018-08-08] MEDS: LIDOCAINE 5% PATCH TP SCH (08:49)
[2018-08-08] MEDS: NICOTINE 21 MG/EA PATCH TOP SCH (08:49)
[2018-08-08] MEDS: PREDNISONE 20 MG TAB PO SCH (08:49)
--- NOTE | 2018-08-08 11:07 | NUR ---
PRN XANAX GIVEN PER PT RESQUEST. PT HAS A HX OF ANXIETY
--- NOTE | 2018-08-08 12:14 | Progress Note ---
DATE: August 08, 2018 SUBJECTIVE: Mr. Barrera is seen on rounds today. He is sleeping right now. No apparent distress. Events noted. Oral intake from yesterday was 1520 mL. OBJECTIVE VITAL SIGNS: Temperature 97.7, respirations 20, heart rate 62, and blood pressure of 112/63. IMPRESSION AND PLAN: Patient is awaiting transition to LTAC for continuation of care. Right now, he still has difficulty ambulating, which is to be expected. He does need lumbar surgery and is looking forward to his strength and his endurance. Overall, he is doing about the same. Needs to work on function, mobility, ADLs, and energy conservation technique. He does not feel he is ready to go home just yet. Continue supportive care. Job#: [id number] LASHONDA
[2018-08-08] MEDS: HYDROCODONE/APAP 5MG-325MG TAB PO PRN ×2 (13:23→18:58)
--- NOTE | 2018-08-08 13:23 | NUR ---
PT COMPLAINTS OF PAIN TO BACK 01/10 , GIVEN PRN NORCO AT THIS TIME
[2018-08-08] MEDS: ENOXAPARIN SOD INJ 40 MG/0.4 ML SYR SC SCH (17:24)
--- NOTE | 2018-08-08 19:04 | NUR ---
WALKING ROUNDS PERFORMED, RECEIVED PT LAYING SEMI FOWLERS IN BED, AAOX3, RR EVEN AND NON-LABORED, ON RA. LEFT PT LAYING SEMI FOWLERS IN BED, BED IN LOW LOCKED POSITION, SIDE RAILS UPX2, CALL LIGHT AND PHONE WITHIN REACH.
[2018-08-08] MEDS: TRAZODONE HCL 50 MG TAB PO SCH (21:03)
[2018-08-08] MEDS: QUETIAPINE FUMARATE 25 MG TAB PO SCH (21:03)
[2018-08-09] VITALS (8 sets, daily range): BP systolic 100–136; BP diastolic 55–80
[2018-08-09] MEDS: ALPRAZOLAM 1 MG TAB PO PRN ×3 (04:21→17:40)
[2018-08-09] MEDS: BUDESONIDE 90 MCG FLEXHALER IH SCH (07:00)
[2018-08-09] MEDS: NICOTINE 21 MG/EA PATCH TOP SCH (09:21)
[2018-08-09] MEDS: ASPIRIN 325 MG TAB PO SCH (09:21)
[2018-08-09] MEDS: LIDOCAINE 5% PATCH TP SCH (09:21)
[2018-08-09] MEDS: PANTOPRAZOLE SOD 40 MG TABEC PO SCH (09:21)
[2018-08-09] MEDS: PREDNISONE 20 MG TAB PO SCH (09:21)
[2018-08-09] MEDS: VENLAFAXINE HCL 75 MG CAPCR PO SCH (09:21)
[2018-08-09] MEDS: METOPROLOL SUCCINATE 50 MG TAB XL PO SCH (09:21)
[2018-08-09] MEDS: DOCUSATE SODIUM 100 MG CAP PO SCH ×2 (09:21→16:56)
[2018-08-09] MEDS: FUROSEMIDE 40 MG TAB PO SCH (09:21)
[2018-08-09] MEDS ORDERED: SERTRALINE HCL 50 MG TAB PO SCH (12:45)
[2018-08-09] MEDS ORDERED: ARIPIPRAZOLE 20 MG TAB PO SCH (12:45)
[2018-08-09] MEDS ORDERED: BUSPIRONE HCL 5 MG TAB PO SCH (15:00)
[2018-08-09] MEDS: HYDROCODONE/APAP 5MG-325MG TAB PO PRN ×2 (15:56→21:36)
[2018-08-09] MEDS: ARIPIPRAZOLE 2 MG TABLET PO SCH (15:56)
[2018-08-09] MEDS: ENOXAPARIN SOD INJ 40 MG/0.4 ML SYR SC SCH (16:56)
[2018-08-09] MEDS ORDERED: PREDNISONE10 MG PO (17:28)
--- NOTE | 2018-08-09 17:28 | Progress Note ---
DATE: August 09, 2018 PULMONARY MEDICINE PROGRESS NOTE SUBJECTIVE: Mr. Barrera was seen and examined at bedside. Continues to use the BiPAP with reasonable success. Patient continues to have low functional endurance to some extent. He still voices concern consistent with last week's questions about potential life-threatening events that may arise soon. REVIEW OF SYSTEMS: No headaches, no bleeding. OBJECTIVE VITAL SIGNS: Afebrile. Vital signs stated and noted per electronic record. GENERAL: No acute distress, alert and calm. HEENT: Normocephalic, atraumatic. NECK: Supple. Throat midline. LUNGS: Bilateral air entry, limited but clear. CARDIOVASCULAR: S1, S2. No murmurs, rubs, or gallops. ABDOMEN: Soft, nontender. EXTREMITIES: No clubbing. No cyanosis. There is trace edema. INTEGUMENT: No rash. No purpura. LABS: No new updates. IMPRESSIONS 1. Chronic obstructive pulmonary disease with exacerbation. 2. Acute respiratory failure, status post bilevel positive airway pressure salvage. Recurrent episodes, twice over the last 2 months. 3. Elevated right hemidiaphragm, thoracic restrictive disorder. 4. Obesity, possible obesity hypoventilation syndrome. 5. Clinical obstructive sleep apnea. PLANS: Wean down prednisone further to 10 mg a day now. Patient will continue on Lasix. Continue to mobilize him. DVT prophylaxis is on. After discussion with patient and , they really want more extended care as they are very scared due to recent multiple life-threatening occurrences. LTAC consult was made and we await transfer. Job#: [id number] REINA
[2018-08-09] MEDS ORDERED: PROAIR HFA INH8.5 GM (17:30)
[2018-08-09] MEDS ORDERED: BYSTOLIC10 MG PO (17:31)
[2018-08-09] MEDS ORDERED: SPIRIVA18 MCG INH (17:31)
[2018-08-09] MEDS ORDERED: TYLENOL WITH C1 EACH PO (17:31)
[2018-08-09] MEDS ORDERED: PULMICORT2 M1 (17:32)
[2018-08-09] MEDS ORDERED: PANTOPRAZOLE SO40 MG PO (17:32)
[2018-08-09] MEDS ORDERED: XANAX1 MG PO (17:33)
[2018-08-09] MEDS ORDERED: EFFEXOR XR 3737.5 MG PO (17:33)
[2018-08-09] MEDS ORDERED: LASIX40 MG PO (17:33)
[2018-08-09] MEDS ORDERED: AMITIZA24 MCG PO (17:34)
--- NOTE | 2018-08-09 17:40 | Discharge Summary ---
HISTORY OF PRESENT ILLNESS: Patient is a 53-year-old male who has a past medical history positive for chronic back pain, history of hypertension. Came to the hospital complaining of increasing episodes of chest pain, difficulty walking, collapsing when he was walking. Dr. Deleon saw him from the cardiology point of view. He recommended a stress test as an outpatient. Cardiac enzymes were negative. EKG was unremarkable. Patient was found to have severe COPD with hypoxemia. Patient was started on oxygen, prednisone, albuterol and Atrovent, budesonide, and he is doing much better right now. He is going home, and he is going to get home health for physical and occupational therapy. He is going to go with oxygen. He is going to get a wheelchair. He is going to get a walker, also, and he is going to see me in a week. PHYSICAL EXAM: VITAL SIGNS: The blood pressure 130/69, temperature 98.4, heart rate 76 per minute, respiratory rate is 20 per minute. Oxygen saturation 98%. HEART: Shows regular rhythm. Normal S1 and S2 sounds. LUNGS: Clear bilaterally. EXTREMITIES: Show no evidence of cyanosis, edema or trauma. On the BMP: Sodium 141, potassium 4.1, chloride 93, CO2 40, BUN 23, creatinine 0.82. On the CBC: White blood count 9.42, hemoglobin 14.8, hematocrit 47.8, platelet count 245,000. PT 12.6, PTT 27.9, INR 0.87. AST 14, ALT 20, total bilirubin 0.7, alkaline phosphatase 44. FINAL IMPRESSIONS: 1. Severe chronic obstructive pulmonary disease with COPD exacerbation. 1. Hypoxemia secondary to chronic obstructive pulmonary disease. 2. Chronic back syndrome. 3. Essential hypertension. 4. Depression. 5. Posttraumatic stress disorder. 6. Sleep apnea. PLAN OF TREATMENT: Patient will go home on the following medications: Spiriva 2 inhalations every 4 hours as needed for shortness of breath. Oxygen, of course, 2 liters per minute. Continue with Protonix 40 mg daily. Alprazolam 1 mg 3 times a day as needed for anxiety. Continue on metoprolol 50 mg daily. Amitiza 24 mcg p.o. twice a day. Tylenol No. 4 one tablet q.4 hours as needed for pain. Prednisone 10 mg daily. Aspirin 325 mg daily. Lactulose 20 grams daily. Temazepam 15 mg at night p.r.n. for sleep. NicoDerm patch 21 mg daily. Furosemide 40 mg daily. Effexor 150 mg daily. Pulmicort 1 inhalation daily. He is going to follow up with Dr. Newberry as an outpatient, Dr. Deleon also as an outpatient. Oxygen has been prescribed along with a walker, wheelchair, and physical and occupational therapy by home health and [facility]dc facility. NAREN BEST MD Job#: [id number] EV
--- NOTE | 2018-08-09 17:55 | NUR ---
md levy states pt can go home spoke with him about hh no set up yet md liriano pt can call to office tomorrow to set up hh paged md levy regarding order for walker and wheel chair before dc. if this can also be arranged after dc. md liriano hold dc at this time and have CM arrange both supplies with hh tomorrow. orders received
--- NOTE | 2018-08-09 19:30 | NUR ---
REPORT TAKEN FROM AM RN.WALKING ROUNDS DONE.LYEING QUIETLY IN THE BED.ASSESSMENT DONE.NO RESP.DISTRESS.NC O2 3L IS IN PLACE.CALL LIGHT AND PHONE WITHIN REACH.INSTRUCTED TO CALL FOR ASSISTANCE NEEDED.
[2018-08-09] MEDS ORDERED: TEMAZEPAM 15 MG CAP PO SCH (21:00)
--- NOTE | 2018-08-09 22:00 | NUR ---
PT COMPLAINTS GENERALIZED PAIN.MEDICATED WITH NORCO PO.ASSISTED THE PT TO THE BATH ROOM.AMBULATES WITH WALKER.
[2018-08-10] VITALS: BP 109/59
[2018-08-10] MEDS: ALPRAZOLAM 1 MG TAB PO PRN ×2 (03:51→10:20)
--- NOTE | 2018-08-10 03:51 | NUR ---
XANAX 1MG PO GIVEN PER PATIENT REQUEST.
[2018-08-10 04:00] VITALS: BP 97/51
--- NOTE | 2018-08-10 07:00 | NUR ---
REPORT GIVEN TO THE ONCOMING RN.WALKING ROUNDS DONE.STABLE CONDITION.
[2018-08-10 08:41] VITALS: BP 119/60
[2018-08-10] MEDS ORDERED: PREDNISONE 20 MG TAB PO SCH (09:00)
[2018-08-10] MEDS ORDERED: VENLAFAXINE HCL 75 MG CAPCR PO SCH (09:00)
[2018-08-10] MEDS ORDERED: PREDNISONE 10 MG TAB PO SCH (09:00)
[2018-08-10] MEDS: DOCUSATE SODIUM 100 MG CAP PO SCH ×2 (09:10→16:08)
[2018-08-10] MEDS: ASPIRIN 325 MG TAB PO SCH (09:10)
[2018-08-10] MEDS: PANTOPRAZOLE SOD 40 MG TABEC PO SCH (09:10)
[2018-08-10] MEDS: FUROSEMIDE 40 MG TAB PO SCH (09:10)
[2018-08-10] MEDS: ONDANSETRON HCL INJ 2 MG/ML VIAL IV PRN (09:10)
[2018-08-10] MEDS: ARIPIPRAZOLE 2 MG TABLET PO SCH (09:10)
[2018-08-10] MEDS: METOPROLOL SUCCINATE 50 MG TAB XL PO SCH (09:11)
[2018-08-10] MEDS: NICOTINE 21 MG/EA PATCH TOP SCH (09:11)
[2018-08-10] MEDS: LIDOCAINE 5% PATCH TP SCH (09:11)
[2018-08-10 12:49] VITALS: BP 117/65
[2018-08-10] MEDS ORDERED: anoro ellipta PO (12:57)
[2018-08-10] MEDS ORDERED: PREDNISONE10 MG PO (12:57)
[2018-08-10] MEDS ORDERED: PROAIR HFA INH8.5 GM PO (12:57)
--- NOTE | 2018-08-10 13:34 | NUR ---
CM SPOKE TO PATIENT AT BEDSIDE REGARDING MD ORDER FOR PT EVAL AND TREAT. PATIENT INFORMED OF HOME HEALTH SERVICES AND GIVEN CHOICES TO CHOOSE FROM. PATIENT CHOSE [facility]. CHOICE LETTER SIGNED AND PLACED IN CHART. CLINICAL SENT TO [facility] @ [phone]. PENDING ACCEPTANCE.
--- NOTE | 2018-08-10 13:34 | NUR ---
PATIENT TO BE DISCHARGED HOME WITH HOME HEALTH SERVICES FROM: [facility] (P) [phone] (F) [phone] PATIENT AWARE THAT IF THEY DO NOT RECEIVE CALL WITHIN 24 HOURS AFTER DISCHARGE TO CONTACT COMPANY OR CM. CM LEFT CONTACT INFO AT THE BEDSIDE.
--- NOTE | 2018-08-10 13:48 | NUR ---
GAVE ROLLING WALKER FILLED OUT GREEN SHEET AND FILED IN CHART, FAXED ORDER FOR WHEELCHAIR AND ROLLATOR TO [facility], THEY RECEIVED ORDER AND ARE PROCESSING TO BE DELIVERED TO HOME IF HE QUALIFIES
--- NOTE | 2018-08-10 14:12 | Progress Note ---
DATE: August 10, 2018 PULMONARY MEDICINE PROGRESS NOTE SUBJECTIVE: Mr. Barrera was seen and examined at bedside. He continues to have steady progress. He is weaned down slightly more on oxygen. He did qualify for home oxygen 3 liters per minute with a setting that he was given. The patient is walking. The family still cite some concerns, and we did our best to answer questions. I also informed them what to expect in terms of the near future with pulmonary workup. REVIEW OF SYSTEMS: No headaches. OBJECTIVE VITAL SIGNS: Afebrile. Vital signs noted per electronic record. HEENT: Normocephalic, atraumatic. NECK: Supple. Throat midline. LUNGS: Bilateral air entry, decreased breath sounds, rare rhonchi. CARDIOVASCULAR: S1, S2. No murmurs, rubs, or gallops. ABDOMEN: Soft, nontender. EXTREMITIES: No clubbing. No cyanosis. There is trace edema. INTEGUMENT: No rash. No purpura. LABS: No new updates. IMPRESSIONS 1. Acute respiratory failure, status post BiPAP salvage. 2. Chronic obstructive pulmonary disease presumptive with exacerbation. 3. Obesity-hypoventilation syndrome possible. 4. Elevated right-sided hemidiaphragm. 5. Hypoxemia, not otherwise specified. 6. Presumptive obstructive sleep apnea. PLAN: At this time, we will continue current treatment. Prednisone weaning will be continued. Continue bronchodilators. The patient will be recommended for outpatient followup. Sleep study is definitely highly indicated. Job#: [id number]
[2018-08-10] MEDS: HYDROCODONE/APAP 5MG-325MG TAB PO PRN (16:08)
[2018-08-10] MEDS: ENOXAPARIN SOD INJ 40 MG/0.4 ML SYR SC SCH (16:08)
[2018-08-10 16:56] VITALS: BP 122/59
--- NOTE | 2018-08-10 17:35 | Discharge Summary ---
Patient is waiting to be discharged today. We are waiting on his . Patient has been officially discharged since yesterday. Patient has no complaints. PHYSICAL EXAM: VITAL SIGNS: Blood pressure 117/65, temperature 97.9, heart rate 82 per minute, respiratory rate 18 per minute, oxygen saturation 97%. HEART: Shows regular rhythm. Normal S1 and S2 sounds. LUNGS: Clear bilaterally. ABDOMEN: Soft. On the BMP: Sodium 141, potassium 4.1, chloride 93, CO2 40, BUN 23, creatinine 0.82, glucose 131. On the CBC: White blood count 9.42, hemoglobin 14.8, hematocrit 47.8, platelet count 245,000. PT 12.6, PTT 27.9, INR 0.87. AST 14, ALT 20, total bilirubin 0.7, alkaline phosphatase 44. FINAL IMPRESSIONS: 1. Chronic obstructive pulmonary disease exacerbation. 2. Chronic pain syndrome. 3. Hypertension. 4. Posttraumatic stress disorder. 5. Depression. PLAN OF TREATMENT: Continue same medication I dictated yesterday. He is going home today with physical and occupational therapy. He is going to go home with oxygen. He is going to go home with Spiriva, Pulmicort and the rest of the medications. Follow up with me, Dr. Deleon and Dr. Newberry as an outpatient. NAREN BEST MD Job#: [id number] EV
--- NOTE | 2018-08-10 18:19 | NUR ---
DISCHARGE INSTRUCTIONS GIVEN . PT VERBALIZED UNDERSTANDING . IV DC . PRESSURE DRESSING APPLIED AND TAPED. ROLLING WALKER AND WHEEL CHAIR AT PT BEDSIDE. 02 TANK DELIVERED. PT KNOW TO CALL FOR CONCENTRATOR WHEN GETTING HOME. HH IS SET UP . PT IS SAFE FOR DC AT THIS TIME . PT IS NOW OFF UNIT VIA WHEEL CHAIR TO HOME
--- NOTE | 2018-08-11 09:02 | Progress Note ---
DATE: August 09, 2018 PSYCHIATRIC PROGRESS NOTE Patient evaluated and events noted. Patient is in the room. He states that he is still having depression and anxiety. He is unable to sleep well. He claims that Seroquel is giving him nightmares. He denies any suicidal ideation. He denies any hallucinations. He denies any side effects from the medication. ASSESSMENT: 1. Bipolar disorder. 2. History of posttraumatic stress disorder. 3. Unspecified psychosis. PLAN: 1. To discontinue Seroquel. 2. Add Abilify. 3. Add temazepam. 4. Increase Effexor. 5. Discontinue trazodone. 6. Monitor for mood. 7. Supportive therapy. Dictated by MINE Huffman Job#: [id number]
== END 2018-08-10 18:22 | disposition home health service (06) | DRG 190 ==
LOC: ER 15:21 → ERHOLD 19:38 → MED/SURG 20:22 → IMCU 07-29 14:13 → OBSVTOIN 07-30 10:27 → MED/SURG 08-04 16:19
PROVIDERS: ADMIT Internal Medicine; ATTEND Internal Medicine
DX: J44.1 Chronic obstructive pulmonary disease with (acute) exacerbation (principal); J96.01 Acute respiratory failure with hypoxia; J96.02 Acute respiratory failure with hypercapnia; F31.32 Bipolar disorder, current episode depressed, moderate; F17.200 Nicotine dependence, unspecified, uncomplicated; G47.33 Obstructive sleep apnea (adult) (pediatric); F43.10 Post-traumatic stress disorder, unspecified; M54.9 Dorsalgia, unspecified; E66.01 Morbid (severe) obesity due to excess calories; Z68.36 Body mass index [BMI] 36.0-36.9, adult; R26.2 Difficulty in walking, not elsewhere classified; G25.3 Myoclonus; G89.4 Chronic pain syndrome; R07.89 Other chest pain; E87.5 Hyperkalemia; M25.551 Pain in right hip; F29 Unspecified psychosis not due to a substance or known physiological condition; G54.3 Thoracic root disorders, not elsewhere classified; M46.1 Sacroiliitis, not elsewhere classified; K59.00 Constipation, unspecified
CPT/HCPCS: 36415; 36600; 71045; 71046; 71260; 74018; 80048; 80053; 80061; 82550; 82553; 82805; 82948; 83735; 83880; 84443; 84484; 85025; 85379; 85610; 85730; 93005; 93306; 93970; 94640; 94660; 97139; 99284; G0378; J1650; J1885; J1940; J2270; J2405; J2920; J7030; J7512; J7633; Q9967

== ENCOUNTER → 2018-08-27 | Outpatient (CLI) | payer OTHER ==
[~2018-08-27] MED LIST changes: +ALPRAZOLAM1 MG PO; +AMITIZA24 MCG PO; +BYSTOLIC10 MG PO; -DIAZEPAM 2 MG TAB PO ONE; +EFFEXOR XR 3737.5 MG PO; -HYDROCODONE/APAP 10MG-325MG TAB PO ONE; -KETOROLAC TROMETHAMINE 60 MG/2 ML VIAL IM ONE; +LASIX40 MG PO; +PANTOPRAZOLE SO40 MG PO; +PREDNISONE10 MG PO; +PROAIR HFA INH8.5 GM; +PROAIR HFA INH8.5 GM PO; +PULMICORT2 M1; +SPIRIVA18 MCG INH; +TRAZODONE HCL100 MG PO; +TYLENOL WITH C1 EACH PO; +XANAX1 MG PO; +anoro ellipta PO
--- NOTE | 2018-09-21 06:44 | Polysomnography ---
DATE OF STUDY: August 27, 2018 DIAGNOSTIC POLYSOMNOGRAM REFERRING PHYSICIAN: Dr. Miguel Newberry. HISTORY: This is a 53-year-old gentleman with excessive daytime sleepiness and witnessed apneas. Patient has a past medical history of chronic back pain, PTSD, depression with anxiety features, chronic elevated right hemidiaphragm, and COPD. Current medications are multiple, but not listed per patient. Kent sleepiness scale score is 3. BMI is 36.7. The patient presents for a diagnostic polysomnogram. FINDINGS: Polysomnogram reveals total sleep time of 50 minutes with sleep efficiency of 25.3%. Sleep onset latency was achieved in 86 minutes. There was no REM on this night. Stage N1 4.0%, N2 of 96.0%, N3 0%, and REM sleep 0% of total sleep time. Patient did not take his trazodone prior to sleeping and sleep study was truncated early due to the patient being in excessive pain. Of note, the patient was on the phone as we began our study, even as recording started at 2133 hours. Patient finally placed the phone down at 2253 hours. Patient had some sleep and awoke at 2356 hours and he turned his phone on at 2358 hours. End of study was at 0052 hours. That is when he turned off his phone. Some intermittent snoring was noted. A total of 0 apneas, 1 hypopnea was noted for an apnea-hypopnea index of 1.2 events per hour. Patient's majority of sleep was in side position. Lowest oxygen saturation was 89%. His baseline saturation towards the beginning of the study was 90% to 91% when lying down. No significant periodic limb movements of sleep were noted. Single-lead EKG analysis had lots of interference due to cell phone usage, but was otherwise unremarkable. INTERPRETATION: This was an abnormal polysomnogram due to the presence of: 1. Intermittent snoring. Multiple factors such as obesity, thyroid disease, and structural/obstructive abnormalities in the upper airway can be contributory. Evaluation and management of these factors may be helpful. The patient does not require CPAP therapy at this time. An ENT examination may be helpful if snoring persists and creates significant lifestyle difficulties. As stated above, the study was limited due to decreased sleep time. If a concern for sleep apnea persists, then repeat polysomnogram may be considered after subspecialty clinic visit to prepare for a night of sleep. 2. Hypoxemia, awake and during sleep. Clinical correlation is recommendation, which should include a comprehensive cardiopulmonary evaluation if not done previously. MD MARIELA Almanzar Certified in Sleep Medicine Job#: [id number] CF MTDD
== END ==
LOC: SLEEP 19:12
PROVIDERS: ATTEND Internal Medicine Critical Care Medicine
DX: G47.33 Obstructive sleep apnea (adult) (pediatric) (principal)

== ENCOUNTER 2019-06-27 07:18 | Emergency (ER) | payer OTHER ==
[~2019-06-27] VITALS: Ht 185.4 cm; Wt 127.0 kg
--- OUTSIDE RECORDS SUMMARY | 2019-06-27 07:21 | XMS REPORT ---
Author Author [facility] Address Unknown Phone Unavailable Care Team Providers Care Vice President Of Sales Name Role Phone NASIR, HEMA Unavailable Unavailable Payers Payer Name Policy Type Policy Number Effective Date Expiration Date Problems This patient has no known problems. Allergies, Adverse Reactions, Alerts Allergy Name Allergy Type Status Severity Reaction(s) Onset Date Inactive Date Treating Clinician Comments prochlorperazine edisylate DA Active 2019-04-21 00:00:00 amoxicillin trihydrate DA Active 2019-04-21 00:00:00 clavulanic acid DA Active 2019-04-21 00:00:00 amoxicillin DA Active 2019-04-21 00:00:00 prochlorperazine edisylate DA Active 2019-04-07 00:00:00 amoxicillin trihydrate DA Active 2019-04-07 00:00:00 clavulanic acid DA Active 2019-04-07 00:00:00 amoxicillin DA Active 2019-04-07 00:00:00 prochlorperazine edisylate DA Active 2018-07-09 00:00:00 amoxicillin trihydrate DA Active 2018-07-09 00:00:00 clavulanic acid DA Active 2018-07-09 00:00:00 amoxicillin DA Active 2018-07-09 00:00:00 prochlorperazine edisylate DA Active 2018-04-15 00:00:00 amoxicillin trihydrate DA Active 2018-04-15 00:00:00 clavulanic acid DA Active 2018-04-15 00:00:00 amoxicillin DA Active 2018-04-15 00:00:00 prochlorperazine edisylate DA Active SV 2018-04-10 00:00:00 amoxicillin trihydrate DA Active SV 2018-04-10 00:00:00 clavulanic acid DA Active SV 2018-04-10 00:00:00 amoxicillin DA Active SV 2018-04-10 00:00:00 prochlorperazine edisylate DA Active SV 2012-11-23 00:00:00 amoxicillin trihydrate DA Active SV 2012-11-23 00:00:00 clavulanic acid DA Active SV 2012-11-23 00:00:00 amoxicillin DA Active SV 2012-11-23 00:00:00 Medications This patient has no known medications. Results Test Description Test Time Test Comments Text Results Atomic Results Result Comments - MRI L-SPINE W WO CON 2019-04-22 16:48:00 FAX: Hema Allen MD [phone] [place]: St: REG FAX: Kenneth Garcia [phone] Name[facility] 1965 Age/S: 54/M [address] [place] [address] Unit #: [id number] Loc: [place] [address] Phys: Kenneth Hayward MD Acct: [id number] Dis Date: Status: REG [facility] PHONE #: [phone] Exam Date: 04/22/2019 1311 FAX #: [phone] Reason: LUMBAR EXAMS: CPT CODE: [id number] MRI L-SPINE W WO CON 57123 LUMBAR SPINE MRI WITH AND WITHOUT CONTRAST 04/22/2019 AT 1234 HOURS. CLINICAL HISTORY: Low back pain radiating to right leg. History of lumbar fusion. COMPARISON STUDIES: Lumbar spine series 04/08/[address] 07/09/2018. ADMINISTERED CONTRAST: 26 cc of Dotarem intravenously. FINDINGS: Multi-planar T1 and T2-weighted images of the lumbar spine were obtained with and without contrast. Normal signal intensity seen in the visualized spinal cord and the sacral nerve roots. However, at least 2 tiny nodular lesions are seen insinuating between the cauda equina nerve roots as described below. No abnormal spinal cord or leptomeningeal enhancement. No retroperitoneal masses or adenopathy are noted. T12-L1 Unremarkable. L1-L2: Severe facet arthrosis and mild ligamentum flavum hypertrophy. Patent spinal canal and neural foramina. Minimal 1-2 mm intraluminal/extramedullary nodule with mild T1 hypointense and T2 hypointensity between the right cauda equina ne rve roots without appreciable enhancement (series 3, image 8). L2-L3: No disc bulge or herniation. Patent spinal canal and neural foramina. Facet arthrosis and mild ligamentum flavum hypertrophy. Incidental round 2 mm likely enhancing intradural/extramedullary nodule between the left cauda equina nerve roots (series 6, image 10) with mild T1 hyperintensity and T2 hypointensity. L3-L4: Broad-based 1-2 mm left foraminal and right paracentral disc bulges causing mild left lateral recess stenosis. In combination with severe facet arthrosis there is mild right and [id number] left foraminal stenosis. Patent spinal canal. L4-L5: Right hemilaminectomy/facetectomy with right foraminotomy and posterior fusion/grafting. Severe facet arthrosis with roughly 30-40% left lateral recess stenosis and moderate left foraminal stenosis. Decompressed right neural foramen and spinal canal. L5-S1: Right hemilaminectomy, facetectomy, foraminotomy and fusion/grafting. Degenerative 2 mm retrolisthesis with 2 mm posterior PAGE 1 Signed Report (CONTINUED) FAX: Hema Allen MD [phone] [place]: St: REG FAX: Kenneth Garcia [phone] Name: [facility] [place] : 1965 Age/S: 54/M [address] [place] [address] Bl Unit #: [id number] Loc: [place] [address] Phys: Kenneth Hayward MD Acct: [id number] Dis Date: Status: REG [facility] PHONE #: [phone] Exam Date: 04/22/2019 1311 FAX #: [phone] Reason: LUMBAR EXAMS: CPT CODE: [id number] MRI L-SPINE W WO CON 79452 <Continued> L5 osteophytes abutting the anteroinferior aspect of the right exiting nerve root. Patent spinal canal. Severe left facet arthrosis with mild left foraminal stenosis. Surgically decompressed right neural foramen. IMPRESSION: 1. Right L4-L5 and L5-S1 hemilaminectomy with posterior decompression/fusion showing no visible surgical complication. 2. Degenerative 2 mm retrolisthesis of L5 over S1 with posterior L5 osteophytes abutting the right exiting nerve root. 3. Multilevel facet arthrosis and foraminal stenosis as described. 4. At least 2 indeterminate millimetric nodular lesions insinuating between the cauda equina nerve roots as described. 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 Favor nonaggressive process. 5. No spinal cord edema, compression or myelomalacia. No abnormal spinal cord enhancement. 6. No lumbosacral spine fracture or dislocation. 7. No acute retroperitoneal findings. SL: ER-H at 1648 Reported and signed by: George Curtis M.D. CC: Hema Best MD; Kenneth Hayward MD Technologist: RT Homar(R)(MRI) [facility] Date/Time/By: 04/22/2019 (903) : By: [email or web address] Orig Print D/T: S: 04/22/2019 (4607) PAGE 2 Signed Report - XR KNEE 1 OR 2 V LT 2019-04-08 15:17:00 FAX: Ilda Maurice DO [place]: GE St: REG FAX: Hema Allen MD [phone] Name: LEVI LEE [facility] : 1965 Age/S: 54/M [address] [place] [address] Unit #: [id number] Loc: [place] [address] Phys: Ilda Hamilton DO Acct: [id number] Dis Date: Status: REG ER PHONE #: [phone] Exam Date: 04/08/2019 1502 FAX #: [phone] Reason: pain after fall EXAMS: CPT CODE: [id number] XR KNEE 1 OR 2 [place] [address] PROCEDURE: Left knee 2 views INDICATION: Left knee pain post fall. COMPARISON: November 2012 FINDINGS: AP and lateral views were obtained utilizing portable equipment. Overlying bedding or other material limiting assessment of the soft tissues. No gross soft tissue abnormality otherwise. No evidence for joint effusion. Total knee stasis in place. No fracture, dislocation or radiographic evidence for loosening. IMPRESSION: No acute radiographic abnormality. SL: [id number] at 1517 Reported and signed by: Edu Damon M.D. CC: Ilda Zuniga Joy ; Hema Best MD Technologist: Jennifer Summers, RT(R); RT Krishna(R) Trnscrd Date/Time/By: 04/08/2019 (1517) : By: Uli Orig Print D/T: S: 04/08/2019 (1780) PAGE 1 Signed Report - XR L-SPINE W/BEND VIEW 2019-04-08 14:57:00 FAX: Hema Allen MD [phone] [place]: St: REG FAX: Kenneth Garcia [phone] Name: LEVI LEE [place] : 1965 Age/S: 54/M [address] [place] [address] Unit #: [id number] Loc: [place] [address] Phys: Kenneth Hayward MD Acct: [id number] Dis Date: Status: REG [facility] PHONE #: [phone] Exam Date: 04/08/2019 1242 FAX #: [phone] Reason: LUMBAR PAIN S/P FUSION EXAMS: CPT CODE: [id number] XR L-SPINE W/BEND VIEW 92752 Patient Name: LEVI LEE : 1965; Age: 54 years y/o Male MR: [id number] Study: - XR L-SPINE W/BEND VIEW 04/08/2019 11:36 AM Ordering Physician: Kenneth Hayward MD Clinical Indication: ; LUMBAR PAIN S/P FUSION Comparison: None FINDINGS: Mild lumbar spondylosis and mildfacet joint arthrosis greatest in the lower lumbar spine. No translation on flexion and extension views. Postoperative changes from posterior fusion at L4-S1 with disc prostheses at L4-5 and L5-S1. No acute fracture, dislocation, or suspicious focal osseous lesion. The paraspinal soft tissue thickness is normal. IMPRESSION: Mild lumbar spondylosis and facet arthrosis without acute fracture or malalignment. No translation on flexion and extension views. Postoperative changes from posterior fusion and discectomies at L4-S1. SL: AP-H at 7493 Reported and signed by: Landen Patterson M.D. CC: Hema Best MD; Kenneth Hayward MD Technologist: Zainab Nova, RT(R), RTT Trnscrd Date/Time/By: 04/08/2019 (1457) : By: [email or web address] Orig Print D/T: S: 04/08/2019 (2756) PAGE 1 Signed Report BASIC METABOLIC PANEL 2019-04-07 12:19:00 SODIUM (test code=NA) 138 mEq/L 134-147 POTASSIUM (test code=K) 4.2 mEq/L 3.4-5.0 CHLORIDE (test code=CL) 105 mEq/L 100-108 CARBON DIOXIDE (test code=CO2) 31 mEq/L 21-33 ANION GAP (test code=GAP) 6 0-20 GLUCOSE (test code=GLU) 100 mg/dL 70-110 BLOOD UREA NITROGEN (test code=BUN) 11 mg/dL 7-18 GLOMERULAR FILTRATION RATE (test code=GFR) 101.1 90-95 Units of measure=ml/min/1.73 m2 CREATININE (test code=CREAT) 0.8 mg/dL 0.6-1.3 CALCIUM (test code=CA) 8.8 mg/dL 8.0-10.5 BASIC METABOLIC [id number] 12:17:00* Test Item Value Reference Range Comments SODIUM (test code=NA) 138 mEq/L 134-147 POTASSIUM (test code=K) 4.2 mEq/L 3.4-5.0 CHLORIDE (test code=CL) 105 mEq/L 100-108 CARBON DIOXIDE (test code=CO2) 31 mEq/L 21-33 ANION GAP (test code=GAP) 6 0-20 GLUCOSE (test code=GLU) 100 mg/dL 70-110 BLOOD UREA NITROGEN (test code=BUN) 11 mg/dL 7-18 GLOMERULAR FILTRATION RATE (test code=GFR) 90-95 CREATININE (test code=CREAT) mg/dL 0.6-1.3 CALCIUM (test code=CA) 8.8 mg/dL 8.0-10.5 - XR CHEST 2 [id number] 11:56:00 FAX: Mirian Brooks [facility] [phone] [place]: St: PRE FAX: Hema Allen MD [phone] FAX: Kenneth Garcia [phone] Name: LEVI LEE [facility] : 1965 Age/S: 54/M [address] [place] [address] Unit #: [id number] Loc: [place] [address] Phys: Mirian Giordano Acct: [id number] Dis Date: Status: PRE SDC PH ONE #: [phone] Exam Date: 04/07/2019 1143 FAX #: [phone] Reason: PRE-OP MRI WITH SEDATION EXAMS: CPT CODE: [id number] XR CHEST 2 V 30409 CHEST RADIOGRA PHS - PA AND LATERAL: COMPARISON: July 09, 2018 CLINICAL HISTORY: PRE-OP MRI WITH SEDATION The cardiopericardial s ilhouette is within normal limits. There is mild unchanged elevat ion of the right hemidiaphragm. Lungs were clear except for minor right ba silar discoid atelectasis. No vascular congestion or pneumothorax. Metallic plate is present in the lower cervical spine. IMPRESSION: Mildly elevated right hemidiaphragm with m inor right basilar discoid atelectasis. Electronically Gosia d by [place] Allen on 04/07/2019 at 1155 Reported an d signed by: Juan Alberto Allen M.D. CC: Mirian Giordano; Hema Best MD; Kenneth Hayward MD Technologist: Jennifer Summers RT(R) Trnscrd Date/Time/By: 04/07/2019 (2225) : By: [email or web address] Orig Print D/T: S: 04/07/2019 (6685) PAGE 1 Signed Report CBC W/AUTO [id number] 11:52:00* Test Item Value Reference Range Comments WHITE BLOOD CELL (test code=WBC) 8.14 x10 3/uL 4.5-11.0 RED BLOOD CELL (test code=RBC) 5.22 x10 6/uL 4.00-5.60 HEMOGLOBIN (test code=HGB) 15.6 g/dL 12.5-16.9 HEMATOCRIT (test code=HCT) 47.1 % 37.5-50.7 MEAN CELL VOLUME (test code=MCV) 90.2 fL 81.0-99.0 MEAN CELL HGB (test code=MCH) 29.9 pg 27.0-33.0 MEAN CELL HGB CONCETRATION (test code=MCHC) 33.1 g/dL 33.0-37.0 RED CELL DISTRIBUTION WIDTH CV (test code=RDW) 13.5 % 11.5-14.5 RED CELL DISTRIBUTION WIDTH SD (test code=RDW-SD) 45.2 fL 37.0-54.0 PLATELET COUNT (test code=PLT) 347 x10 3/uL 150-400 MEAN PLATELET VOLUME (test code=MPV) 9.2 fL 7.0-9.0 NEUTROPHIL % (test code=NT%) 60.8 % 56.0-77.0 IMMATURE GRANULOCYTE % (test code=IG%) 0.9 % 0.0-2.0 LYMPHOCYTE % (test code=LY%) 27.6 % 14.0-32.0 MONOCYTE % (test code=MO%) 9.1 % 4.8-9.0 EOSINOPHIL % (test code=EO%) 1.1 % 0.3-3.7 BASOPHIL % (test code=BA%) 0.5 % 0.0-2.0 NUCLEATED RBC % (test code=NRBC%) 0.0 % 0-0 NEUTROPHIL # (test code=NT#) 4.95 x10 3/uL 2.0-7.6 IMMATURE GRANULOCYTE # (test code=IG#) 0.07 x10 3/uL 0.00-0.03 LYMPHOCYTE # (test code=LY#) 2.25 x10 3/uL 1.0-3.8 MONOCYTE # (test code=MO#) 0.74 x10 3/uL 0.1-0.8 EOSINOPHIL # (test code=EO#) 0.09 x10 3/uL 0.0-0.2 BASOPHIL # (test code=BA#) 0.04 x10 3/uL 0.0-0.2 NUCLEATED RBC # (test code=NRBC#) 0.00 x10 3/uL 0.0-0.1 MANUAL DIFF REQUIRED (test code=MDIFF) NO CT CHEST [id number] 18:45:00 [place] [id number] [place] [address] Patient Name: LEVI LEE MR #: [id number] : 1965 Age/Sex: 53/M Req #: [id number] Adm Physician: HEMA BEST MD Ordered by: HEMA BEST MD Report #: [id number] Location: [facility] Room/Bed: [place] [address] Procedure: [id number] CT/ CT CHEST W Exam Date: 07/30/18 Exam Time: 1801 REPORT STATUS: Signed CT chest pulmon brittany embolism protocol CPT code: 43038 INDICATION: Hypoxia TECHNI QUE: Thin collimation axial images obtained through the level of the pulmonary arteries with additional imaging through the chest following the uneventful a dministration of 100 cc of low osmolar, nonionic intravenous contrast. Images reconstructed into coronal and sagittal MIPs for complete evaluation of the t ortuous and overlapping pulmonary vascular structures and to reduce patient ra diation dose. RADIATION DOSE: Total DLP: 637.7 mGy*cm Estima oni effective dose: (DLP x 0.015 x size factor) mSv CTDIvol has been revi ewed. It is below the limits set by the Radiation Protocol Committee (RPC). COMPARISON: Chest x-ray 0424 hours. FINDINGS: Pulmonary artery: A 2 mm eccentric filling defect in the lower lobe branch of the right pulmonary fay ry, posterior basal segment (series 2, image 61). No filling defects elsewhere . Main pulmonary artery measures 3.1 cm in diameter. Aorta: The thoracic aorta is not aneurysmal. No evidence for dissection. Lymph nodes: No enlar ged axillary, supraclavicular, or mediastinal lymph nodes. Left hilar lymph no de measures 1.8 x 2.1 cm. Right hilar lymph nodes measure up to 11 mm. Th yroid: Normal in size without mass in the visualized parenchyma.. Mediastin um: The heart is normal in size. There are prominent pericardial fat pads. No pericardial effusion. The esophagus is collapsed. Lungs: Mild upper lobe predominant centrilobular emphysema. Right Lung: There is eventration of t he right diaphragm with overlying subsegmental atelectasis of the middle and l ower lobes. No interstitial edema. Mild bronchial wall thickening. No discrete mass. Left Lung: Subsegmental atelectasis in the upper lobe. Nonspecific subpleural groundglass attenuation in the lower lobe. No confluent infiltrates . No discrete mass. Mild diffuse bronchial wall thickening. Pleura: No pl eural effusion or pleural based mass.. Abdomen: The gallbladder is absent. There is fatty atrophy of the pancreas. No mass or lymphadenopathy in the visu alized portion of the upper abdomen. Bones: Mild degenerative changes of th e spine. Fusion plate in the lower cervical spine is partially imaged. Visuali zed portions are intact. Soft tissues: Bilateral gynecomastia.. IMPRES ERVIN: 1. 2 mm nonocclusive filling defect in the lower lobe branch of the right pulmonary artery may represent a chronic embolus or artifact. No evidenc e of embolus elsewhere. 2. Nonspecific hilar lymph node enlargement. Recomm end 6 month follow-up with CT to document interval change. 3. Centrilobular emphysema. Bronchial wall thickening suggestive of bronchitis, either acute or chronic. Bilateral subsegmental atelectasis. 4. Eventration of the right di aphragm of uncertain chronicity. Signed by: Dr. Girma Murphy MD on 09/30/2017 6:53 PM Dictated By: GIRMA MURPHY MD Electronically Gosia d By: GIRMA MURPHY MD on 07/30/181852 Transcribed By: GILBERTO on 07/30/181852 COPY TO: HEMA BEST MD CT HIP RIGHT [id number] 18:39:[address] [place], [place] [address] Patient Name: LEVI LEE MR #: [id number] : 1965 Age/Sex: 53/M Req #: [id number] [facility] Physician: HEMA BEST MD Ordered by: HEMA BEST MD Report #: [id number] Location: [facility] Room/Bed: [place] [address] Procedure: [id number] CT/ CT HIP RIGHT WO Exam Date: 07/30/18 Exam Time: 1801 REPORT STATUS: Signed CT hip Wit hout Contrast, With Multiplanar Reconstructions. CPT CODE: 32016,30659. INDICATIONS: Hip pain with popping noise. TECHNIQUE: Contiguous 2.5 mm th ickness axial images were obtained in helical fashion through the right hip. From these, coronal and sagittal reconstructions were generated. Dose red uction techniques used: Automated exposure control, adjustment of the mAs and/ or kVp according to patient size, standardized low-dose protocol, and/or itera tive reconstruction technique. RADIATION DOSE: Total DLP: 288.95 mGy*cm Estimated effective dose: (DLP x 0.015 x size factor) mSv CTDIvol has been reviewed. It is below the limits set by the Radiation Prot ocol Committee (RPC). COMPARISON: Abdomen x-ray 07/29/2018. No hip x-ray s available for comparison. Findings: Bowel: Visualized bowel is nayely l in diameter with normal wall thickness. Lymph nodes: No lymphadenopathy. B ladder: Visualized portions are unremarkable. Peritoneum/retroperitoneum: No f ree fluid or fluid collection. Bones: Sclerosis of the right SI joint. No o steophyte formation. Sacroiliac joint is widely patent. No periosteal new bone formation. No evidence of fracture or dislocation of the hip. There are ve ry early degenerative changes of the hip. Visualized pubic rami are intac t. No lytic lesions. A subcentimeter bone island is in the right femoral he ad. Soft tissues: No intramuscular hematoma or mass. Subcutaneous tissues a re unremarkable. IMPRESSION: Mild degenerative changes of the right SI joint and right hip. No evidence of acute fracture or dislocation. If there is persistent pain or clinical concern for ligamentous or tendinous abn ormality, recommend MRI of the hip on an outpatient basis. Thank you for th is referral. Signed by: Dr. Girma Murphy MD on 07/30/2018 6:44 PM Dictated By: GIRMA MURPHY MD 43 Transcribed By: GILBERTO on 07/30/181843 COPY TO: HEMA BEST MD CHEST SINGLE (PORTABLE)2018-07-30 05:31:00 [place] [address] Patient Name: LEVI LEE MR #: [id number] : 1965 Age/Sex: 53/M Req #: [id number] Adm Physician: HEMA BEST MD Ordered by: URSZULA HUSAIN MD Report #: [id number] Location: [facility] Room/Bed: [place] [address] Procedure: [id number] D X/CHEST SINGLE (PORTABLE) Exam Date: 07/30/18 Exam T toney: 0426 REPORT STATUS: Signed EXAM: CHEST SINGLE (PORTABLE), AP 1 view INDICATION: Shortness of breath COM PARISON: AP view of the chest July 29, 2018 FINDINGS: LINES/TUBES: No ne LUNGS: Stable bilateral atelectasis and vascular congestion. PLEUR A: No effusions or pneumothorax. Stable elevation of the right hemidiaphragm. HEART AND MEDIASTINUM: Normal size and contour. BONES AND SOFT TISSUES: No acute findings. Lower cervical spine surgical hardware. IMPRESSION: No interval change. Signed by: Dr. Kimmy Garrison M.D. on 07/30 5:32 AM Dictated By: KIMMY GARRISON MD 1 Transcribed By: GILBERTO on 07/30/18531 COPY TO: URSZULA HUSAIN MD, [facility] ABDOMEN-1VIEW (KUB)2018-07-29 13:46:00 [place] [address] Patient Name: LEVI LEE MR #: [id number] : 1965 Age/Sex: 53/M Req #: [id number] Adm Physician: HEMA BEST MD Ordered by: HEMA BEST MD Report #: [id number] Location: MED/SURG Room/Bed: [facility] Procedure: [id number] DX/ ABDOMEN-1VIEW (KUB) Exam Date: 07/29/18 Exam Time: 1 132 REPORT STATUS: Signed PROCED URE: X-RAY ABDOMEN - KUB COMPARISON: None. INDICATIONS: VOMITI NG FINDINGS: There are no dilated loops of bowel to suggest obst ruction. There are clips in the right upper quadrant of the abdomen. There a re no masses or abnormal calcifications. There is no evidence of free air. No acute osseous abnormalities are present. CONCLUSION: No acu te abdominal abnormality. Felix Cloud D.O. Dictated by : Felix Cloud D.O. on 07/29/2018 at 13:46 Electronically approved by: Felix Cloud D.O. on 07/29/2018 at 13:46 Dictated By: FELIX CLOUD DO 1346 Trans cribed By: SARAHI on 07/29/18 1346 COPY TO: HEMA BEST MD CHEST SINGLE (PORTABLE)2018-07-29 06:17:00 [place] [address] Patient Name: LEVI LEE MR #: [id number] : 1965 Age/Sex: 53/M Req #: [id number] Adm Physician: HEMA BEST MD Ordered by: STEVE COLON OIL RIGGER Report #: [id number] Location: MED/SURG Room/Bed: [facility] Procedure: [id number] DX/ CHEST SINGLE (PORTABLE) Exam Date: 07/29/18 Exam Edouard e: 0525 REPORT STATUS: Signed EX AM: CHEST SINGLE (PORTABLE), AP 1 view INDICATION: Chest pain, shortness of br eath COMPARISON: PA and lateral view of the chest July 28, 2018 FINDI NGS: LINES/TUBES: None LUNGS: No consolidations or edema. Perihilar and b ibasilar atelectasis. PLEURA: No effusions or pneumothorax. Stable elevatio n of the right hemidiaphragm. HEART AND MEDIASTINUM: Normal size and cont our. BONES AND SOFT TISSUES: No acute findings. Lower cervical spine surgic al hardware. IMPRESSION: No interval change. Signed by: Dr. Kimmy Garrison M.D. on 07/29/2018 6:18 AM Dictated By: KIMMY GARRISON MD 7 Transcribed By: GILBERTO on 07/29/18617 COPY TO: STEVE COLON NP CHEST 2 VIEWS 2018-07-28 18:09:00 [place] [address] Patient Name: LEVI LEE MR #: [id number] : 1965 Age/Sex: 53/M Req #: [id number] Adm Physician: Ordered by: DAJA ALVARADO MD Report #: [id number] Location: ER Room/Bed: Procedure: [id number] DX/C HEST 2 VIEWS Exam Date: 07/28/18 Exam Time: 1744 REPORT STATUS: Signed EXAMINATION: CHEST 2 VIEWS INDICATION: SOB COMPARISON: None F INDINGS: PA and lateral views TUBES and LINES: None. LUNGS: Lungs a re not well inflated. There are bibasilar atelectasis. There is no evidence of pneumonia or pulmonary edema. PLEURA: No pleural effusion or pneumothor ax. HEART AND MEDIASTINUM: The cardiomediastinal silhouette is unremarkabl e. BONES AND SOFT TISSUES: Low anterior cervical fusion plate. No acut e osseous lesion. Soft tissues are unremarkable. UPPER ABDOMEN: No free air under the diaphragm. IMPRESSION: Hypoinflated lungs with atelect asis. Signed by: Dr. Estiven Loaiza M.D. on 07/28/2018 6:10 PM Dictated By: ESTIVEN LOAIZA MD 09 Transcri bed By: GILBERTO on 07/28/181809 COPY TO: DAJA ALVARADO MD
[2019-06-27] MEDS ORDERED: HYDROCODONE/APAP 5MG-325MG TAB PO ONE (07:45)
--- NOTE | 2019-06-27 08:20 | NUR ---
wc from lobby to room and at dc time pt in wc to personal vehicle.
[2019-06-27] MEDS ORDERED: KETOROLAC TROMETHAMINE 30 MG/ML VIAL IM ONE (12:00)
== END 2019-06-27 08:19 | disposition home or self-care (01) ==
LOC: ER 07:18
DX: M54.5 Low back pain (principal)
CPT/HCPCS: 99283; J1885

== ENCOUNTER 2020-02-12 09:55 | Emergency (ER) | payer OTHER ==
[~2020-02-12] VITALS: Ht 185.4 cm; Wt 127.0 kg
[2020-02-12] MEDS ORDERED: ONDANSETRON HCL INJ 2MG/ML 2ML 2 MG/ML VIAL IV NR (10:15)
[2020-02-12] MEDS ORDERED: MORPHINE SULFATE 2 MG/ML SYR 1ML IV NR (10:15)
--- NOTE | 2020-02-12 10:30 | NUR ---
Unable to obtain IV line or blood work at this time patient is a difficult stick.
[2020-02-12] MEDS ORDERED: DIATRIZOATE MEGL/DIATRIZOA SOD 30 ML BTL PO ONE (10:39)
[2020-02-12] MEDS ORDERED: LORAZEPAM INJ 2 MG/ML VIAL IM ONE (11:15)
--- NOTE | 2020-02-12 12:00 | NUR ---
Spoke with patient's , she states that patient called her on is mobile device stating that he was unaware of what was going on. Informed that I have explained to patient multiple times about the test and procedures that were being performed. Informed that I would reinterate what was going on so that patient could get a better understanding.
[2020-02-12 12:13] LABS: CLARITY,URINE SL CLOUDY (CLEAR); COLOR,URINE YELLOW (YELLOW); LEUKOCYTE ESTERASE ,URINE NEGATIVE (NEGATIVE); NITRITE,URINE NEGATIVE (NEGATIVE); PROTEIN,URINE DIPSTICK NEGATIVE (NEGATIVE)
[2020-02-12 12:14] LABS: BACTERIA,URINE RARE /HPF; BILIRUBIN,URINE NEGATIVE (NEGATIVE); EPITHELIAL CELLS,URINE FEW /LPF; KETONES,URINE NEGATIVE (NEGATIVE); RBC,URINE 0-5 /HPF (0-5); URINE UROBILINOGEN 0.2 mg/dL (0.2 - 1); WBC,URINE (MAN) 0-5 /HPF (0-5)
--- NOTE | 2020-02-12 13:40 | NUR ---
Lab at bedside to draw blood work.
[2020-02-12 13:48] LABS: BASOPHILS % 0.2 % (0.0-1.0); EOSINOPHILS # (AUTO) 0.2 (0.0-0.4); EOSINOPHILS % 1.8 % (0.0-6.0); HEMATOCRIT 46.3 % (38.2-49.6); HEMOGLOBIN 14.7 g/dL (14.0-18.0); LYMPHOCYTES # (AUTO) 2.1 (1.0-3.2); LYMPHOCYTES % 24.9 % (18.0-39.1); MEAN CORPUSCULAR HEMOGLOBIN 29.5 pg (28-32); MEAN CORPUSCULAR HGB CONC 31.7 g/dL (31-35); MEAN CORPUSCULAR VOLUME 92.8 fL (81-99); MONOCYTES # (AUTO) 0.8 (0.2-0.8); MONOCYTES % 9.7 % (4.4-11.3); NEUTROPHILS # (AUTO) 5.2 (2.1-6.9); NEUTROPHILS % 62.8 % (38.7-80.0); PLATELET COUNT 281 x10e3/uL (140-360); RED BLOOD COUNT 4.99 x10e6/uL (4.3-5.7); RED CELL DISTRIBUTION WIDTH 13.6 % (11.7-14.4)
--- NOTE | 2020-02-12 13:50 | NUR ---
Re-interated test and procedures that were ordered to patient and time frame for results.
[2020-02-12 14:00] LABS: INR 0.8; PROTHROMBIN TIME 11.5 seconds (11.9-14.5)
[2020-02-12 14:01] LABS: PARTIAL THROMBOPLASTIN TIME 27.5 seconds (23.8-35.5)
[2020-02-12 14:11] LABS: ALANINE AMINOTRANSFERASE 33 IU/L (0-55); ALKALINE PHOSPHATASE 50 IU/L (40-150); ANION GAP 8.4 mmol/L (8-16); BLOOD UREA NITROGEN 10 mg/dL (7-26); BUN/CREATININE RATIO 13 (6-25); CALCIUM 8.8 mg/dL (8.4-10.2); CARBON DIOXIDE 33 mmol/L (22-29); CHLORIDE 104 mmol/L (98-107); CREATINE KINASE 50 IU/L (30-200); CREATININE, SERUM 0.77 mg/dL (0.72-1.25); EST GLOMERULAR FILTRATION RATE > 60 ML/MIN (60-); GLUCOSE 107 mg/dL (74-118); MAGNESIUM 1.8 MG/DL (1.3-2.1); POTASSIUM 4.4 mmol/L (3.5-5.1); SODIUM 141 mmol/L (136-145)
--- NOTE | 2020-02-12 14:51 | Diagnostic Imaging Report ---
EXAMINATION: CT of the chest, abdomen and pelvis without contrast. TECHNIQUE: Helical CT images of the chest, abdomen and pelvis were performed from the lung apices to the lesser trochanters without intravenous contrast. Enteric contrast administered.. Coronal and sagittal reformatted images were obtained. Dose modulation, iterative reconstruction, and/or weight based adjustment of the mA/kV was utilized to reduce the radiation dose to as low as reasonably achievable. COMPARISON: None. CLINICAL HISTORY:Shortness of breath and abdominal pain DISCUSSION: CHEST: LINES/TUBES: None. LUNGS AND AIRWAYS: Atelectasis in the lung bases. No consolidation. No concerning mass. PLEURA: The pleural spaces are clear. HEART AND MEDIASTINUM: The thyroid gland is normal. The heart and pericardium are within normal limits. LYMPH NODES: No significant mediastinal, hilar or axillary lymphadenopathy is seen. BONES AND SOFT TISSUES: No bony destructive lesions. No soft tissue abnormalities. ABDOMEN/PELVIS: HEPATOBILIARY:Hepatic steatosis. Cholecystectomy. SPLEEN: No splenomegaly. PANCREAS: No focal masses or ductal dilatation. ADRENALS: No adrenal nodules. KIDNEYS/URETERS: Bilateral punctate renal calculi. No solid masses. No hydronephrosis. PELVIC ORGANS/BLADDER: The bladder is normal. PERITONEUM/RETROPERITONEUM: No free air or fluid. LYMPH NODES: No intra-abdominal,retroperitoneal, pelvic or inguinal lymphadenopathy. VESSELS: Mild vascular calcifications. GI TRACT: Scattered diverticulosis. No inflammatory change. Appendix normal. BONES AND SOFT TISSUES: No bony destructive lesions. No soft tissue abnormalities. Spinal fusion L4-L5 L5-S1. IMPRESSION: No acute CT finding of the chest abdomen or pelvis. Signed by: Dr. Aniket Wesley M.D. on 02/12/2020 2:48 PM
--- NOTE | 2020-02-12 16:08 | Emergency Department Note ---
History of Present Illnes History of Present Illness Chief Complaint: Respiratory History of Present Illness This is a 54 year old male C/O SOB HX COPD CURRENT SMOKER 1 PACK/DAY/CIGARETTES ON HOME O2 ALSO C/O SWELLING TO ABD AND BILATERAL LOWER LEGS X 1 WEEK PRESENTS WITH +3 EDEMA STATES HX OF ENLARGED PROSTATE STATES HE CAN ONLY POOP AFTER HE PEES STATES HE FEELS REALLY BLOATED. Historian: Patient Arrival Mode: Car Onset (how long ago): week(s) (1) Radiation: Reports non-radiation Severity: moderate Onset quality: gradual Timing of current episode: intermittent Progression: waxing and waning Chronicity: new Context: Denies recent illness Relieving factors: none Exacerbating factors: none Associated symptoms: Reports denies other symptoms Past Medical/Family History Physician Review I have reviewed the patient's past medical and family history. Any updates have been documented here. Past Medical History Recent Fever: No Clinical Suspicion of Infectio: Yes New/Unexplained Change in Ment: No Past Medical History: COPD, Anxiety, Depression Other Medical History: DIVERTICULITIS DEMENTIA PTSD Past Surgical History: Cholecysctectomy, Knee Replacement, Hernia Repair, Colon Resection Other Surgery: PLATE IN NECK AND BACK Social History Smoking Cessation: Never Smoker Counseling Performed: No Alcohol Use: None Any Illegal Drug Use: No Physically hurt or threatened: No Other Last Tetanus: UNK Any Pre-Existing Lines (PICC,: No Review of Systems Review of Systems Constitutional: Reports as per HPI EENTM: Reports no symptoms Cardiovascular: Reports no symptoms Respiratory: Reports as per HPI Gastrointestinal: Reports as per HPI Genitourinary: Reports as per HPI Musculoskeletal: Reports no symptoms Integumentary: Reports no symptoms Neurological: Reports no symptoms Psychological: Reports no symptoms Endocrine: Reports no symptoms Hematological/Lymphatic: Reports no symptoms Physical Exam Related Data Allergies: Coded Allergies: prochlorperazine (Verified Allergy, Unknown, 07/28/18) Triage Vital Signs Vital Signs Date Time Temp Pulse Resp B/P (MAP) Pulse Ox O2 Delivery O2 Flow Rate FiO2 02/12/20 10:01 97.9 96 20 160/92 96 Room Air Vital signs reviewed: Yes Physical Exam CONSTITUTIONAL Constitutional: Present well-developed, Present well-nourished HENT HENT: Present normocephalic, Present atraumatic, Present oropharynx clear/moist, Present nose normal HENT L/R: Present left ext ear normal, Present right ext ear normal EYES Eyes: Reports PERRL, Reports conjunctivae normal NECK Neck: Present ROM normal PULMONARY Pulmonary: Present effort normal, Present breath sounds normal CARDIOVASCULAR Cardiovascular: Present LLE edema (2+ BILAT), Present RLE edema (2+ BILAT) GASTROINTESTINAL Abdominal: Present soft, Present bowel sounds normal, Present tender (MILD LLQ WITHOUT R/G) GENITOURINARY Genitourinary: Present exam deferred SKIN Skin: Present warm, Present dry MUSCULOSKELETAL Musculoskeletal: Present ROM normal NEUROLOGICAL Neurological: Present alert, Present oriented x 3, Present no gross motor or sensory deficits PSYCHOLOGICAL Psychological: Present mood/affect normal, Present judgement normal Results Laboratory Result Diagram: 02/12/20 1315 02/12/20 1315 Laboratory Laboratory Tests Test 02/12/20 13:15 02/12/20 11:45 White Blood Count 8.35 x10e3/uL (4.8-10.8) Red Blood Count 4.99 x10e6/uL (4.3-5.7) Hemoglobin 14.7 g/dL (14.0-18.0) Hematocrit 46.3 % (38.2-49.6) Mean Corpuscular Volume 92.8 fL (81-99) Mean Corpuscular Hemoglobin 29.5 pg (28-32) Mean Corpuscular Hemoglobin Concent 31.7 g/dL (31-35) Red Cell Distribution Width 13.6 % (11.7-14.4) Platelet Count 281 x10e3/uL (140-360) Neutrophils (%) (Auto) 62.8 % (38.7-80.0) Lymphocytes (%) (Auto) 24.9 % (18.0-39.1) Monocytes (%) (Auto) 9.7 % (4.4-11.3) Eosinophils (%) (Auto) 1.8 % (0.0-6.0) Basophils (%) (Auto) 0.2 % (0.0-1.0) Neutrophils # (Auto) 5.2 (2.1-6.9) Lymphocytes # (Auto) 2.1 (1.0-3.2) Monocytes # (Auto) 0.8 (0.2-0.8) Eosinophils # (Auto) 0.2 (0.0-0.4) Basophils # (Auto) 0.0 (0.0-0.1) Absolute Immature Granulocyte (auto 0.05 x10e3/uL (0-0.1) Prothrombin Time 11.5 seconds (11.9-14.5) Prothromb Time International Ratio 0.80 Activated Partial Thromboplast Time 27.5 seconds (23.8-35.5) Sodium Level 141 mmol/L (136-145) Potassium Level 4.4 mmol/L (3.5-5.1) Chloride Level 104 mmol/L (98-107) Carbon Dioxide Level 33 mmol/L (22-29) Anion Gap 8.4 mmol/L (8-16) Blood Urea Nitrogen 10 mg/dL (7-26) Creatinine 0.77 mg/dL (0.72-1.25) Estimat Glomerular Filtration Rate > 60 ML/MIN (60-) BUN/Creatinine Ratio 13 (6-25) Glucose Level 107 mg/dL (74-118) Calcium Level 8.8 mg/dL (8.4-10.2) Magnesium Level 1.8 MG/DL (1.3-2.1) Total Bilirubin 0.4 mg/dL (0.2-1.2) Aspartate Amino Transf (AST/SGOT) 23 IU/L (5-34) Alanine Aminotransferase (ALT/SGPT) 33 IU/L (0-55) Alkaline Phosphatase 50 IU/L (40-150) Creatine Kinase 50 IU/L (30-200) Creatine Kinase MB 1.80 ng/mL (0-5.0) Troponin I 0.003 ng/mL (0-0.300) B-Type Natriuretic Peptide 40.3 pg/mL (0-100) Total Protein 6.0 g/dL (6.5-8.1) Albumin 3.0 g/dL (3.5-5.0) Globulin 3.0 g/dL (2.3-3.5) Albumin/Globulin Ratio 1.0 (0.8-2.0) Urine Color Yellow (YELLOW) Urine Clarity Sl cloudy (CLEAR) Urine pH 6 (5 - 7) Urine Specific [place] 1.025 (1.010-1.025) Urine Protein Negative (NEGATIVE) Urine Glucose (UA) Negative (NEGATIVE) Urine Ketones Negative (NEGATIVE) Urine Blood Negative (NEGATIVE) Urine Nitrite Negative (NEGATIVE) Urine Bilirubin Negative (NEGATIVE) Urine Urobilinogen 0.2 mg/dL (0.2 - 1) Urine Leukocyte Esterase Negative (NEGATIVE) Urine RBC 0-5 /HPF (0-5) Urine WBC 0-5 /HPF (0-5) Urine Epithelial Cells Few /LPF (NONE) Urine Bacteria Rare /HPF (NONE) Lab results reviewed: Yes Imaging Imaging results reviewed: Yes Impressions Procedure: [id number] CT/CT ABDOMEN/PELVIS WO Exam Date: 02/12/20 Exam Time: 1420 REPORT STATUS: Signed EXAMINATION: CT of the chest, abdomen and pelvis without contrast. TECHNIQUE: Helical CT images of the chest, abdomen and pelvis were performed from the lung apices to the lesser trochanters without intravenous contrast. Enteric contrast administered.. Coronal and sagittal reformatted images were obtained. Dose modulation, iterative reconstruction, and/or weight based adjustment of the mA/kV was utilized to reduce the radiation dose to as low as reasonably achievable. COMPARISON: None. CLINICAL HISTORY:Shortness of breath and abdominal pain DISCUSSION: CHEST: LINES/TUBES: None. LUNGS AND AIRWAYS: Atelectasis in the lung bases. No consolidation. No concerning mass. PLEURA: The pleural spaces are clear. HEART AND MEDIASTINUM: The thyroid gland is normal. The heart and pericardium are within normal limits. LYMPH NODES: No significant mediastinal, hilar or axillary lymphadenopathy is seen. BONES AND SOFT TISSUES: No bony destructive lesions. No soft tissue abnormalities. ABDOMEN/PELVIS: HEPATOBILIARY:Hepatic steatosis. Cholecystectomy. SPLEEN: No splenomegaly. PANCREAS: No focal masses or ductal dilatation. ADRENALS: No adrenal nodules. KIDNEYS/URETERS: Bilateral punctate renal calculi. No solid masses. No hydronephrosis. PELVIC ORGANS/BLADDER: The bladder is normal. PERITONEUM/RETROPERITONEUM: No free air or fluid. LYMPH NODES: No intra-abdominal,retroperitoneal, pelvic or inguinal lymphadenopathy. VESSELS: Mild vascular calcifications. GI TRACT: Scattered diverticulosis. No inflammatory change. Appendix normal. BONES AND SOFT TISSUES: No bony destructive lesions. No soft tissue abnormalities. Spinal fusion L4-L5 L5-S1. IMPRESSION: No acute CT finding of the chest abdomen or pelvis. Signed by: Dr. Darleen Araujo M.D. on 02/12/2020 2:48 PM Dictated By: DARLEEN ARAUJO MD [id number] Procedures 12 Lead ECG Interpretation ECG Interpretation : ECG: ECG 1 Biomedical Instrument Technician: Interpreted by ED physician Date: Feb 12, 2020 Time: 10:13 Rhythm: sinus rhythm Rate: normal (85) QRS axis: normal ST segments normal: Yes T waves normal: Yes Clinical Impression: normal ECG Assessment & Plan Medical Decision Making MDM CBC, CHEM, CARDIACS, ECG, BNP, CX'S, CT ABD/CHEST, COVID SWAB - R/O PNEUMONIA, STEMI/NSTEMI, CHF, DIVERTICULITIS, SBO, RENAL INSUFF Reassessment Reassessment DC, F/U PCP AND GI, BENTYL Assessment & Plan Final Impression: (1) Edema, lower extremity (2) Abdominal pain Depart Disposition: HOME, SELF-CARE Last Vital Signs Date Time Temp Pulse Resp B/P (MAP) Pulse Ox O2 Delivery O2 Flow Rate FiO2 02/12/20 15:09 89 16 146/86 98 02/12/20 10:01 97.9 Room Air Home Meds Active Scripts [anoro ellipta] No Conflict Check, 1 INH PO DAILY for 30 Days, 3 Refills Prov:URSZULA HUSAIN MD, ABI 08/10/18 Albuterol Sulf* (PROAIR HFA INHALER*) 8.5 Gm Inh, 2 INH PO Q4HR PRN for SHORTNESS OF BREATH, #1 3 Refills Prov:URSZULA HUSAIN MD, ABI 08/10/18 Prednisone (PREDNISONE) 10 Mg Tab, 10 MG PO asdirected, #16 TAB 0 Refills 2 TABS FOR 3 DAYS 1 TAB DAILY FOR 10 DAYS Prov:URSZULA HUSAIN MD, ABI 08/10/18 Reported Medications Lubiprostone (AMITIZA) 24 Mcg Capsule, 24 MCG PO BID, #60 CAP 08/09/18 Venlafaxine Hcl* (EFFEXOR XR 37.5MG CAPCR*) 37.5 Mg Capcr, 150 MG PO DAILY 08/09/18 Furosemide (LASIX) 40 Mg Tablet, 40 MG PO DAILY, #30 TAB 08/09/18 Alprazolam* (XANAX*) 1 Mg Tablet, 1 MG PO Q8H PRN for ANXIETY 08/09/18 Pantoprazole Sodium* (PROTONIX) 40 Mg Tablet.dr, 40 MG PO DAILY, TAB 08/09/18 Budesonide (PULMICORT) 2 Ml Nebu, DAILY 08/09/18 Nebivolol Hcl (BYSTOLIC) 10 Mg Tablet, 10 MG PO DAILY, TAB 08/09/18 Acetaminophen With Codeine (TYLENOL WITH CODEINE #3 TABLET) 1 Each Tablet, 300 MG PO Q4HR PRN for PAIN, TAB 08/09/18 Alprazolam (ALPRAZOLAM) 1 Mg Tablet, 1 MG PO TID PRN for ANXIETY 07/28/18 Trazodone Hcl (TRAZODONE HCL) 100 Mg Tablet, 100 MG PO TID 07/28/18 Medications in the ED Morphine Sulfate 2 mg ONCE IV ; Start 02/12/20 at 10:15; Stop 02/12/20 at 11:00; Status DC Ondansetron HCl 4 mg ONCE IV ; Start 02/12/20 at 10:15; Stop 02/12/20 at 11:00; Status DC Diatrizoate Meglum/ Diatrizoate Sod 30 ml STK-MED ONCE PO ; Start 02/12/20 at 10:39; Stop 02/12/20 at 10:33; Status DC Lorazepam 1 mg ONCE ONCE IM Last administered on 02/12/20at 11:35; Admin Dose 1 MG; Start 02/12/20 at 11:15; Stop 02/12/20 at 11:16; Status DC DAJA ALVARADO MD Feb 12, 2020 16:08
[2020-02-12 16:14] VITALS: BP 129/63
== END 2020-02-12 16:25 | disposition home or self-care (01) ==
LOC: ER 10:02
DX: R60.9 Edema, unspecified (principal); R10.32 Left lower quadrant pain
CPT/HCPCS: 36415; 71250; 74176; 80053; 81001; 82550; 82553; 83735; 83880; 84484; 85025; 85610; 85730; 87040; 87086; 93005; 99284; J2060